=== PATIENT | female | born 1945 | race Caucasian/White ===

== ENCOUNTER 2017-02-13 12:39 | Inpatient (IN) ==
[2017-02-13] MEDS ORDERED: KETOROLAC 30 MG/1 ML VIAL IV STA (13:01)
[2017-02-13] MEDS ORDERED: ONDANSETRON 4 MG/2 ML VIAL IV STA (13:01)
[2017-02-13] MEDS ORDERED: methylPREDNISolone SOD SUC 125 MG/2 ML VIAL IV STA (13:01)
[2017-02-13] MEDS ORDERED: MECLIZINE 25 MG TABLET PO STA (13:01)
[2017-02-13] MEDS ORDERED: FUROSEMIDE 40 MG/4 ML VIAL IV STA (13:05)
--- NOTE | 2017-02-13 13:09 | Emergency Department Note ---
Arrival - Arrival Chief Complaint: Weakness Stated Complaint: real weak ED Nursing Triage Note: Pt c/o weakness x 3 wks states she had virus that has improved but has continued weakness, dizziness, ?syncope/fall last night, and decreased appetite. Mode of Arrival: Wheelchair Limitations: No Limitations Source: Patient Time Seen by Provider: 02/13/17 13:01 - History of Present Illness HPI Narrative: This 72-year-old white female presents with a 3 week history of fatigue complicated by perceived progressive weakness, dizziness, near-syncope, and fall. The patient currently does complain of nausea and persistent dizziness as well as aches and pains as well as left orbital pain after a fall last night in which she bounced her head off the floor. She denies any loss of consciousness associated with this. As concerns her course for the last 3 weeks , she states it started with nausea and vomiting without chills, fever, respiratory symptoms, or sinus symptoms. She states she feels she just never got over it and in fact has become progressively less active, a fact her daughter verifies. At no time did the patient have any complaints of ear problems, visual changes, headache, focal deficits, shortness of breath, palpitations, or chest pain. She currently is quite talkative and in no obvious acute medical distress. Onset (ago): week(s) (Patient presents 3 weeks post onset of symptoms) Consistency: constant Severity: moderate Allergies/Adverse Reactions: Allergies Allergy/AdvReac Type Severity Reaction Status Date / Time No Known Allergies Allergy Verified 02/13/17 12:44 Home Medications: Home Medications Medication Instructions Recorded Confirmed Type No Known Home Medications [No 02/13/17 02/13/17 History Known Home Medications] Review of System - Review of System 12 point system: reviewed and no additional remarkable complaints except as stated - Review of System Constitutional: Present: as per HPI Head/Ears/Nose/Throat: Present: see HPI Respiratory: Present: as per HPI Cardiovascular: Present: as per HPI Gastrointestinal: Present: as per HPI Neurological: Present: as per HPI Medical,Surgical,& Family Hx - Social History Smoking Status: Never smoker Exam Physical Examination: GENERAL: Well developed, well nourished elderly white female in no acute distress. HEENT: Normocephalic. Ecchymosis and swelling of the superior left orbit. Moist mucous membranes. EOMI. PERRLA. No nystagmus ENT NML NECK: Supple. No adenopathy. CARDIAC: Regular. No murmurs. Heart rate 105 CHEST: Clear to auscultation. No respiratory distress. O2 sat 99% ABDOMEN: Soft. Nontender. Active bowel sounds. EXTREMITIES: No trauma. Normal ROM. No pedal edema. SKIN: No diaphoresis. No rash. NEURO: Alert. Oriented 3. Motor, sensory, vibratory intact. No focal deficits. Vital Signs: Vital Signs Temperature 98.3 F 02/13/17 12:40 Pulse Rate 92 H 02/13/17 14:45 Respiratory Rate 16 02/13/17 14:45 Blood Pressure 101/70 02/13/17 14:45 O2 Sat by Pulse Oximetry 98 02/13/17 14:45 Course - Reevaluation(s) Reevaluation #1: Discussed with patient and family the need for further evaluation and treatment given her abnormalities of laboratory. - Consultations Consultation #1: Discussed with the hospitalist service will admit for further evaluation treatment Results - Labs CBC & BMP: 02/13/17 13:21 02/13/17 13:21 Labs: I reviewed the lab and noted the elevated white blood cell count, and significant jump in troponin despite normal total CK. Likewise noted was evidence of a urinary tract infection. - Impressions EKG: Sinus rhythm at 93 with normal NM interval and QRS duration. Evidence of old inferior infarct and ST changes consistent with probable persistent ischemia. Poor R-wave progression anteriorly. No acute injury pattern noted. - Diagnostic Findings Procedure: Chest x-ray: image reviewed by me, report reviewed by me (No acute disease.), CT: image reviewed by me, report reviewed by me (Head: No acute injury but diffuse atherosclerotic disease of intracranial vessels, facial CT: No acute fractures but evidence of sinus disease) Disposition Clinical Impression: Abnormal cardiac enzyme, Cystitis Case discussed with: patient, patient's family Disposition: Still a Patient Condition: Stable Time of Disposition: 16:01
[2017-02-13] MEDS ORDERED: KETOROLAC 30 MG/1 ML VIAL ONE (13:15)
[2017-02-13] MEDS ORDERED: MECLIZINE 25 MG TABLET ONE (13:15)
[2017-02-13] MEDS ORDERED: methylPREDNISolone SOD SUC 125 MG/2 ML VIAL ONE (13:15)
[2017-02-13] MEDS ORDERED: FUROSEMIDE 40 MG/4 ML VIAL ONE (13:16)
[2017-02-13] MEDS ORDERED: ONDANSETRON 4 MG/2 ML VIAL ONE (13:16)
--- NOTE | 2017-02-13 13:35 | CT Report ---
CT of the head without contrast. Indication: Dizziness with fall and head injury and facial pain. No prior studies. There is calcific plaque present within the intracranial internal carotid arteries. There is calcification within the vertebral arteries. There is generalized prominence of the ventricles and sulci consistent with atrophy of aging. There is mild bilateral basal ganglial calcification. There is no mass effect, midline shift, or area of hemorrhage. No cortical infarcts are seen at this time. The calvarium is intact. The included paranasal sinuses and the mastoid air cells are clear. Impression: No evidence of acute intracranial injury. The CT exam was performed using one or more of the following dose reduction techniques: Automated exposure control, adjustment of the mA and/or kV according to patient size, or use of iterative reconstruction technique. PROCEDURE INTERPRETED AT [facility] DEPARTMENT OF RADIOLOGY Final Report Signed by: Dr. Johanna Gil
--- NOTE | 2017-02-13 13:40 | CT Report ---
CT of the facial bones without contrast. Axial images were obtained with sagittal and coronal reconstructions. Indication: Dizziness, fall, injury to the face. There is partial opacification of an air cell of the left frontal sinuses. There is scattered mucous debris and mucosal thickening within the ethmoid sinuses. There is mild mucosal thickening within both maxillary sinuses. No air-fluid levels are seen. There is a wisdom tooth present on the upper left. No acute fractures are identified. 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 The mastoid air cells are clear. There is no temporomandibular joint dislocation. Impression: No evidence of acute facial fracture. Scattered paranasal sinus disease. The CT exam was performed using one or more of the following dose reduction techniques: Automated exposure control, adjustment of the mA and/or kV according to patient size, or use of iterative reconstruction technique. PROCEDURE INTERPRETED AT [facility] DEPARTMENT OF RADIOLOGY Final Report Signed by: Dr. Johanna Gil
--- NOTE | 2017-02-13 13:41 | XRay Report ---
2 view chest. Indication: Fall, injury, and chest pain. The heart and mediastinal contours are unremarkable. The pulmonary vasculature is normal. Slight interstitial prominence, likely chronic. No consolidation, pneumothorax, or pleural effusion. Demineralization, with exaggerated kyphosis of the thoracic spine and degenerative changes. Impression: No acute abnormality. PROCEDURE INTERPRETED AT [facility] DEPARTMENT OF RADIOLOGY Final Report Signed by: Dr. Johanna Gil
[2017-02-13 13:53] LABS: Basophils % 0.1 % (0.0-0.8); Hematocrit 32.2 VOL% (35.7-47.0); Hemoglobin 9.4 GM/DL (12.0-16.0); Immature Granulocytes % 0.6 %; Lymphocytes # 1.4 10*3/uL (1.4-4.0); Lymphocytes % 8.1 % (21.3-54.2); Mean Corpuscular HGB Conc 29.2 GM/DL (32-36); Mean Corpuscular Hemoglobin 22 PG (27-34); Mean Corpuscular Volume 76.1 FL (87-102); Mean Platelet Volume 10.1 FL (9.6-12.0); Monocytes # 1.1 10*3/uL (0.11-0.8); Neutrophils # 14.8 10*3/uL (1.4-7.4); Neutrophils % 85.2 % (38.7-73.9); Platelet Count 159 T/CUMM (130-400); Red Blood Count 4.23 MC/CUMM (3.8-5.5); Red Cell Distribution Width 20.6 % (9.3-17.3); White Blood Count 17.4 T/CUMM (4-12)
--- NOTE | 2017-02-13 13:59 | EKG Report ---
Stationary ECG Study [facility] ER Test Date: 02/13/2017 1:52:28 PM Pat Name: TYRONE LOZANO Department: Room: Gender: F [employer]: : 1945 Requested by: Vijay Whitfield Order Number: [id number] Reading MD: BRIAN RAY Intervals [place] Rate: 93 P: 64 DC: 148 QRS: 19 QRSD: 98 T: -17 QT: 377 QTc: 428 Interpretive Statements SINUS RHYTHM MODERATE T-WAVE ABNORMALITY, CONSIDER LATERAL ISCHEMIA Electronically Signed On 02-13-17 19:08:51 CDT by BRIAN RAY [email or web address]
[2017-02-13 14:09] LABS: INR 1.2; PT Patient Result 12.3 SECS
[2017-02-13 14:20] LABS: Albumin 2.2 G/DL (3.4-5.0); Bilirubin,Total 0.4 MG/DL (0.2-1.0); CKMB % 11.8 %; Calcium 7.5 MG/DL (8.5-10.1); Free T4 (Free Thyroxine) 1.25 NG/DL (0.76-1.46); Osmolality,Calculated 292.1 MOS/KG (273-304); Potassium 3.7 MMOL/L (3.5-5.1); Thyroid Stimulating Hormone 1.3 uIU/ml (0.358-3.74); Troponin I Only 0.809 NG/ML (0.00-0.045)
[2017-02-13 15:36] LABS: Apearance,Urine Slightly Hazy (Clear); Bacteria,Urine Many /HPF (Few); Bilirubin,Urine Negative (Negative); Blood, Urine Small mg/dL (Negative); Glucose,Urine (UA) Negative (Negative); Hyaline Casts,Urine 18 /LPF (0-3); Ketones,Urine Negative (Negative); Mucus,Urine Few /LPF (Occasional); Nitrite,Urine Positive (Negative); Protein,Urine Negative; RBC,Urine 1 /HPF (0-4); Squamous Epithelial Cell,Urine Occasional /HPF (0-10); Urine Color Yellow (Yellow); Urine Specific Gravity 1.016 (1.001-1.035); Urine Urobilinogen < 2.0 EU/DL (0.2-1.0); WBC,Urine 3 /HPF (0-6)
[2017-02-13 15:42] LABS: Barbiturates Screen,Urine Negative (Negative); Benzodiazepines Screen,Urine Negative (Negative); Cannabinoid Screen,Urine Negative (Negative); Opiate Screen,Urine Negative (Negative); Phencyclidine Screen,Urine Negative (Negative)
[2017-02-13] MEDS ORDERED: LEVOFLOXACIN INJ 750 MG in PREMIX 1 EACH IV STA (15:45)
[2017-02-13] MEDS ORDERED: NITROGLYCERIN 2% OINT 1 INCH/GM PACK TOP STA (15:45)
[2017-02-13] MEDS ORDERED: ASPIRIN 325 MG TABLET PO STA (15:45)
[2017-02-13] MEDS ORDERED: LEVOFLOXACIN INJ 150 ML IV ONE (16:05)
[2017-02-13] MEDS ORDERED: ASPIRIN 325 MG TABLET ONE (16:05)
[2017-02-13] MEDS ORDERED: NITROGLYCERIN 2% OINT 1 INCH/GM PACK TOP ONE (16:05)
[2017-02-13] MEDS ORDERED: ONDANSETRON 4 MG/2 ML VIAL IV PRN (18:31)
--- NOTE | 2017-02-13 18:35 | Hospitalist History & Physical ---
Assessment and Plan (1) Microcytic anemia Status: Acute Assessment and plan: The patient is admitted to the hospital with a weight loss associated with microcytic anemia, swelling of bilateral lower extremities, nausea. The symptoms appear related to the GI system so we will obtain consultation with Dr. Valentin. We will check CT scan of abdomen and pelvis with oral and IV contrast. We will check a CA 125 and CA-19-9 as well as CEA. We will check EUGENIO and sed rate. Differential diagnosis is rather large and includes infectious, inflammatory, and neoplastic considerations. Current Visit: Yes (2) Weakness generalized Status: Acute Current Visit: Yes (3) Nausea Status: Acute Current Visit: Yes (4) Weight loss, unintentional Status: Acute Current Visit: Yes History of Present Illness Chief complaint: Weakness and weight loss History of present illness: Ms. Castaneda is a 72 year old female with minimal previous medical evaluation. The patient states she was in her usual state of health until about 1 month ago when she had a spell of epidemic nausea vomiting and diarrhea. This symptom was severe for about a week and then became moderate improving and intermittent. The patient had some weight loss. The patient did not notice any bleeding. The patient had mild shortness of breath and since that time has had increasing symptom of weakness. The patient had orthostatic symptoms on the date of admission to the hospital and fell injuring her face with an unguarded fall. The patient denies fever. The patient denies angina. The patient's symptom was moderate, intermittent, and worsening. The patient is now admitted to the hospital for further evaluation of weakness, dizziness, weight loss. The patient denies previous mammogram or Pap smear. The patient states that she has had some brown stools although previously they were watery during the period of symptomatic diarrhea. Home Medications Medication Instructions Recorded Confirmed Type No Known Home Medications [No 02/13/17 02/13/17 History Known Home Medications] Allergies Allergy/AdvReac Type Severity Reaction Status Date / Time No Known Allergies Allergy Verified 02/13/17 12:44 Medical,Surgical,& Family Hx - Medical History Cardio: History of: PVD (Swelling of right greater than left leg) - Family History Family History: Reports;: Family Cancer (sister mother), Family Hypertension Denies;: Family Diabetes, Family Heart Disease, Family Hematology, Family Stroke - Social History Smoking Status: Never smoker Frequency of Alcohol Use: None Type of Drug Use: None Marital Status: Lives With:: Spouse Functional capacity: independent ambulation 12 point system: reviewed and no additional remarkable complaints except as stated Exam - Constitutional Vitals: Period Temp Pulse Resp BP Sys/Altamirano Pulse Ox Last 24 Hr 72-110 16-16 91-115/60-86 93-100 Exam: Constitutional System: Mild distress. Mild tremulousness. The patient had some anxiety with pressured speech Head: Normocephalic, atraumatic. Ears, Nose and Throat System: No evidence of Otitis or Mastoiditis. No epistaxis or discharge Eyes System: Pupils equal, round, and reactive. Extraocular muscles intact. Neck: Supple, without adenopathy, No jugular venous distention. No thyromegaly , neck mass, or prior surgery apparent. Respiratory System: Chest clear to auscultation. Cardiovascular System: Heart with regular rate and rhythm. No murmur. GI System: Abdomen soft, nontender. Normo active bowel sounds present. Musculoskeletal System: limbs with 2+ pedal edema which is brawny and appears chronic. Full distal pulses. Neurological System: No discernable sensory deficit. No aphasia Psychiatric System: Conversation is rational Results - Labs CBC & BMP: 02/13/17 13:21 02/13/17 13:21 Lab Results: I have reviewed the past 24 hour labs Labs: Thyroid function testing within normal limits. The patient has only a few white blood cells per high-powered field on urinalysis. - Diagnostic Findings Procedure: Chest x-ray: image reviewed by me (Normal size heart without infiltrate in the chest)
[2017-02-13] MEDS ORDERED: ENOXAPARIN 40 MG/0.4 ML SYRINGE SUBCUT SCH (19:00)
--- NOTE | 2017-02-13 19:34 | Ultrasound Report ---
Bilateral lower extremity venous Doppler. Grayscale scale, color-flow, and spectral analysis performed and interpreted. No previous. There is normal color flow, augmentation, and compressibility of the right common femoral vein. Within the right superficial femoral vein, there is thin, nonocclusive thrombus noted. The right popliteal vein demonstrates normal compressibility, color flow, and augmentation. There is thrombus, probably occlusive, within the greater saphenous vein, 5 cm from the origin of the common femoral vein. There is additional occlusive thrombus seen in a superficial femoral vein of the upper thigh. The left common femoral vein demonstrates normal compressibility, color flow, and augmentation. There is nonocclusive thrombus seen within the superficial femoral vein and the popliteal vein on the left. Impression: Nonocclusive thrombus in both deep venous systems. Occlusive thrombus in the greater saphenous vein and a superficial vein within the right thigh. Critical test findings were discussed with the nursing station on telemetry. PROCEDURE INTERPRETED AT [facility] DEPARTMENT OF RADIOLOGY Final Report Signed by: Dr. Johanna Gil
[2017-02-13 19:53] LABS: Vitamin B12 825 PG/ML (211-911)
[2017-02-13 20:04] LABS: Basophils % 0.1 % (0.0-0.8); Hematocrit 28.4 VOL% (35.7-47.0); Hemoglobin 8.7 GM/DL (12.0-16.0); Immature Granulocytes % 0.6 %; Immature Granulocytes Absolute 0.07 #; Lymphocytes # 0.5 10*3/uL (1.4-4.0); Lymphocytes % 4.5 % (21.3-54.2); Mean Corpuscular HGB Conc 30.6 GM/DL (32-36); Mean Corpuscular Hemoglobin 23 PG (27-34); Mean Corpuscular Volume 74.2 FL (87-102); Monocytes # 0.2 10*3/uL (0.11-0.8); Monocytes % 1.6 % (1.7-12.7); Neutrophils # 11.3 10*3/uL (1.4-7.4); Neutrophils % 93.2 % (38.7-73.9); Platelet Count 143 T/CUMM (130-400); Red Blood Count 3.83 MC/CUMM (3.8-5.5); Red Cell Distribution Width 20.2 % (9.3-17.3); White Blood Count 12.1 T/CUMM (4-12)
[2017-02-13 20:23] LABS: Lymphocytes 1 % (20-55); Segmented Neutrophils 99 % (50-85); Total Cells Counted 100
[2017-02-13 20:24] LABS: Acanthocytes Few; Ovalocytes Few; Polychromasia Few
[2017-02-13 20:25] LABS: Platelet Estimate Adequate
[2017-02-13 21:11] LABS: Sedimentation Rate-Westergren 6 MM/HR (0-30)
[2017-02-13] MEDS: ENOXAPARIN 80 MG/0.8 ML SYRINGE SUBCUT SCH (21:22)
[2017-02-13] MEDS: SODIUM CHLORIDE 0.9% 1,000 ML IV SCH (21:29)
[2017-02-14 06:01] LABS: Albumin 1.9 G/DL (3.4-5.0); Bilirubin,Total 1.2 MG/DL (0.2-1.0); Calcium 7.7 MG/DL (8.5-10.1); Magnesium 2.1 MG/DL (1.8-2.4); Osmolality,Calculated 293.1 MOS/KG (273-304); Potassium 4.1 MMOL/L (3.5-5.1); Total Protein 4.3 G/DL (6.4-8.3)
[2017-02-14 06:02] LABS: Troponin I Only 0.471 NG/ML (0.00-0.045)
--- NOTE | 2017-02-14 08:28 | CT Report ---
CT of the abdomen and pelvis with intravenous contrast. No oral contrast was administered. 100 cc Omni 350. Indication: Weight loss and nausea. Axial images were obtained during the venous and delayed phases, with sagittal and coronal 2-D reconstructions of the venous phase. The heart size is normal. There is no pericardial or pleural effusion. There is bilateral pulmonary thromboembolism in the secondary and tertiary branches of the pulmonary artery system. There is a small hiatal hernia. The gastric contour is normal. The loops of small intestine are mildly dilated, measuring up to 3.5 cm in maximum diameter. The colon is dilated proximally, with fluid present. At the mid transverse colon, there is circumferential wall thickening which is enhancing and measures up to 2 cm in maximum thickness. It extends over a length of approximately 7 cm. There is stranding in the fat surrounding this mass. Within the sigmoid colon, there is an intraluminal lobular polypoid enhancing mass, measuring 3.6 x 2.4 cm. Gas and fecal material are seen within the rectal vault. The appendix is not discretely seen. The pelvic organs present a normal appearance. There is no inguinal or iliac chain lymphadenopathy. There is no retroperitoneal or mesenteric lymphadenopathy. There is no free air or free fluid within the peritoneal cavity. The liver is normal in size. There is mild fatty infiltration of the liver. There is a tiny hypodensity within the superior aspect of the spleen, nonspecific. There is no adrenal enlargement. There is partial fatty replacement of the pancreas. The kidneys are normal in size. There is mild cortical thinning on the left. There is a 15 mm cyst on the right kidney. No hydronephrosis. There is scattered plaque present within a normal caliber abdominal aorta. Thrombus is seen within the IVC, below the level of the renal veins, and extending into the right iliac vein. No thrombus is seen in the right common femoral vein. There is scoliosis of the spinal column, with degenerative changes and exaggerated lordosis. Left greater than right sacroiliitis. Impression: 1. Bilateral pulmonary thromboembolism. Thrombus is seen within the IVC and right iliac vein. 2. Within the colon, there are 2 masses suspicious for malignancy. One is a circumferential mass at the level of the mid transverse and one is a polypoid mass at the level of the sigmoid. Colonoscopy recommended. 3. Mild partial bowel obstruction. 4. Mild fatty infiltration of the liver. 5. Small hiatal hernia. These findings were discussed with Dr. Hunter at the time of dictation. The CT exam was performed using one or more of the following dose reduction techniques: Automated exposure control, adjustment of the mA and/or kV according to patient size, or use of iterative reconstruction technique. PROCEDURE INTERPRETED AT [facility] DEPARTMENT OF RADIOLOGY Final Report Signed by: Dr. Johanna Gil
[2017-02-14] MEDS ORDERED: ASPIRIN 325 MG TABLET PO SCH (09:00)
[2017-02-14] MEDS: PANTOPRAZOLE 40 MG TABLET PO SCH (09:17)
--- NOTE | 2017-02-14 10:17 | Gastrointestinal Consult Note ---
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 Hopefully she will be able to get a bowel prep they gets her cleaned out enough to be able to undergo full evaluation and potentially surgery to follow. Patient has abnormal weight loss and anemia with guaiac positive stools all supporting the potential cancer. She has a strong family history of colon cancer in her mother and sister bringing up the possibility of Chavis syndrome and so when the pathology from the cancer resection goes off to the lab we need to check for microsatellite instability/genetic markers for Chavis syndrome. The patient also has a large polyp versus second cancer in the sigmoid colon and we will see if this can be resected and removed en kathrine. In my opinion, if this is Chavis syndrome, more colon removed better. Chavis syndrome requires surveillance of affected family members once every 2 years and has a predisposition to proximal colon cancer. Current Visit: Yes (2) Anemia associated with acute blood loss Status: Suspected Assessment and plan: Patient's hematocrit is dropped from 32% down to 28%, and will likely stay at this level due to her chronic blood loss. We will consider transfusion if she drops below 24%. Current Visit: Yes (3) Abnormal CT of the abdomen Status: Acute Assessment and plan: As mentioned above the patient has 2 lesions that are likely potential cancers although the transverse lesion is most certainly the primary there may be a secondary sigmoid cancer versus large polyp as well. The patient has the appearance of IVC clot extending down to the right iliac artery with thromboemboli noted in the lungs all suspicious for hypercoagulable state perhaps brought about by the cancer. Medicine is working this up now. 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 Current Visit: Yes (4) Weight loss, unintentional Status: Acute Assessment and plan: Patient states that she has lost 20 pounds over the last 2 months. This is also consistent with colon cancer and decreased p.o. intake. There is a element of ileus on the CT scan as well with some slight dilation of the small bowel. Hopefully she will be able to get prepped appropriately. Antinauseants have been written. Current Visit: Yes History of Present Illness Chief complaint: Colonic masses by CT scan, slight change in bowel habits, anemia, wt. loss History of present illness: Ms. Castaneda is a 72 year old female who presents with 1 month of nausea/ vomiting and minimal change in her bowel habits with 2 looser bowel movements per day than usual. She actually goes to the bathroom twice daily as a rule, these are just a bit less firm than usual. She been having some orthostatic symptoms on the day of admission and had fallen with the emergency room noting that she had a anemia. Through her hospitalization, her hematocrit is dropped from 32.2 percent down to 28.4 percent with hydration, she has not seen any rainer rectal bleeding but has been noted on physical exam to have guaiac gerard stool. She is a strong family history of colon cancer both in her mother and her sister who is age 65 (6 years the patient's Matt), the sister had to have a colostomy bag for her colon cancer. This puts the patient at very high risk for Chavis syndrome. She has had a CT scan done today which demonstrates a 3.6 x 2.4 cm intraluminal lobular polypoid mass consistent with a large polyp versus cancer. In addition there is a mid transverse colon napkin ring deformity extending 7 cm in length and thickening the colon wall to 2 cm in maximal dimension consistent with a colon cancer. There is fat stranding around this area but no inguinal or iliac chain lymphadenopathy or retroperitoneal/mesenteric lymphadenopathy no free air or free fluid within the peritoneal cavity. There are bilateral pulmonary thromboemboli and thrombus is seen within the IVC below the level of the renal veins extending down to the right iliac vein (? Trousseau's syndrome variant?). The patient does have some reflux symptoms but these are minimal she does not have any dysphagia. She does not typically take proton pump inhibitors. She does not have any classic abdominal pain symptoms with her current complaints. Family confirms the patient has had about a 20 pound unintentional weight loss since December 2016. Home Medications Medication Instructions Recorded Confirmed Type No Known Home Medications [No 02/13/17 02/13/17 History Known Home Medications] Allergies Allergy/AdvReac Type Severity Reaction Status Date / Time No Known Allergies Allergy Verified 02/13/17 12:44 Medical,Surgical,& Family Hx - Medical History Cardio: History of: PVD (Swelling of right greater than left leg) - Family History Family History: Reports;: Family Cancer (sister mother), Family Hypertension Denies;: Family Diabetes, Family Heart Disease, Family Hematology, Family Stroke - Social History Smoking Status: Never smoker Frequency of Alcohol Use: None Type of Drug Use: None Review of systems: Constitutional: Denies fever, chills, nausea, and vomiting Eyes: Denies dry eyes, and scleral icterus HENT: Denies headaches Cardiovascular: Denies acute chest pain and claudication Respiratory: Denies shortness of breath, wheezing, and difficulty breathing, denies cough Gastrointestinal: As noted in the HPI Genitourinary: Denies dysuria and hematuria Neurologic: Denies vision loss, and loss of sensation Musculoskeletal: Patient does have some joint swelling, joint stiffness, and muscular weakness Psychiatric: Denies depression and debi symptoms Heme-Lymph: Denies easy bruising, lymph node enlargement or tenderness, night sweats, excessive bleeding Allergies-immunologic: Denies pruritus and rhinorrhea Exam - Constitutional Vitals: Period Temp Pulse Resp BP Sys/Altamirano Pulse Ox Last 24 Hr 96.8 F-98.3 F 72-110 16-21 91-120/58-86 92-100 Exam: Constitutional: Well-developed, well-nourished, alert, and in no acute distress Head and face: Head: Normocephalic atraumatic Eyes: Conjunctiva without injection, no gross scleral icterus, pupils equal and round bilaterally--early cataracts are developing bilaterally Ears: Intact to conversation in both ears Nose: External appearance is normal, nares patent Mouth: Oral mucous membranes moist without erythema, dentition noted to be without erosion but a few teeth are fractured off at the gumline with caries. Neck: Normal appearance, no masses or tenderness, trachea midline Thyroid: Gland midline and appropriate size for age Respiratory: Normal respiratory effort, clear to auscultation without wheezes, rhonchi or rales Cardiovascular: Regular rate and rhythm, normal S1, S2, the exam is without rubs, murmurs or gallops. Gastrointestinal: Nontender to palpation, normal active bowel sounds, tone normal without rigidity or guarding, no masses present, no hepatomegaly, no spleen tip felt. No rectal exam obtained. Lymphatic: Neck without adenopathy, axilla without lymphadenopathy present Musculoskeletal: Right and left lower extremities with evidence of trace edema Skin and subcutaneous tissue: No rashes or ulcerations noted, normal skin turgor, digits and nails without clubbing/cyanosis/deformities. Neurologic: The patient is grossly oriented to person place and time, cranial nerves show tongue movements are normal with normal tongue extrusion midline, light touch sensation is intact. Psychiatric: No hallucinations or delusions are present, does not appear depressed Results - Labs CBC & BMP: 02/13/17 19:44 02/14/17 04:57
--- NOTE | 2017-02-14 10:30 | Hospitalist Progress Note ---
Assessment and Plan (1) Microcytic anemia Status: Acute Assessment and plan: The patient is admitted to the hospital with a weight loss associated with microcytic anemia, swelling of bilateral lower extremities, nausea. The patient appears to have colon cancer without metastases to the liver so far. The patient will have colonoscopy on Wednesday morning. CA-19-9 is within normal limits. CA 125 and CEA test are pending. We are going to discontinue Lovenox and continue aspirin for now. After colonoscopy the patient will start on anticoagulation for the deep vein thrombosis. Current Visit: Yes (2) Weakness generalized Status: Acute Current Visit: Yes (3) Nausea Status: Acute Current Visit: Yes (4) Weight loss, unintentional Status: Acute Current Visit: Yes Hospitalist: Subjective Interval history: 72 yo lady who arrived with microcytic anemia and weakness. The patient has a circumferential lesion seen in the transverse colon as well as a polypoid lesion in the sigmoid colon seen on CT scan of abdomen and pelvis. There is no mention of liver metastases. The patient does have thrombus in the IVC and bilateral lower extremities which is probably a paraneoplastic process. The patient will have colonoscopy on Wednesday to obtain definitive pathology diagnosis. I had an extended conversation with Dr. Valentin to coordinate care, with the patient to give her the diagnosis of colon cancer, and with the patient 's daughter in the room. Conversations were 25 minutes. Exam - Constitutional Vitals: Period Temp Pulse Resp BP Sys/Altamirano Pulse Ox Last 24 Hr 96.8 F-98.3 F 72-110 16-21 91-120/58-86 92-100 Exam: Constitutional System: Mild distress. Mild tremulousness. The patient had some anxiety with pressured speech Head: Normocephalic, atraumatic. Ears, Nose and Throat System: No evidence of Otitis or Mastoiditis. No epistaxis or discharge Eyes System: Pupils equal, round, and reactive. Extraocular muscles intact. Neck: Supple, without adenopathy, No jugular venous distention. No thyromegaly , neck mass, or prior surgery apparent. Respiratory System: Chest clear to auscultation. Cardiovascular System: Heart with regular rate and rhythm. No murmur. GI System: Abdomen soft, nontender. Normo active bowel sounds present. Musculoskeletal System: limbs with 2+ pedal edema which is brawny and appears chronic. Full distal pulses. Neurological System: No discernable sensory deficit. No aphasia Psychiatric System: Conversation is rational Results - Labs CBC & BMP: 02/13/17 19:44 02/14/17 04:57 Lab Results: I have reviewed the past 24 hour labs
[2017-02-14] MEDS: ENOXAPARIN 80 MG/0.8 ML SYRINGE SUBCUT SCH (10:44)
[2017-02-14] MEDS ORDERED: PROMETHAZINE INJ 25 MG in SODIUM CHLORIDE 0.9% 50 ML IV PRN (10:56)
[2017-02-14] MEDS: BISACODYL 5 MG TABLET PO SCH ×2 (10:59→18:04)
[2017-02-14] MEDS ORDERED: POLYETHYLENE GLYCOL POWDER 255 GM BOTTLE PO ONE (16:00)
[2017-02-14] MEDS: SODIUM CHLORIDE 0.9% 1,000 ML IV SCH (16:55)
--- NOTE | 2017-02-14 17:11 | ECHO Report ---
Carin Castaneda Exam Date: 02/14/2017 10:29 Referring Physician: Technologist: Angela Cortes RDCS Age: 72 Ht (in): 68 Wt (lb): 150 Gender: F Exam Location: [facility] Echo Indications: Microcytic anemia, Weakness, Dizziness and giddiness, Chronic fatigue, unspecified, Nausea, Weight loss, Fall, Elevated troponin, Edema, unspecified BP: 102 / 61 HR: 92 Rhythm: Sinus Technical Quality: Good IMPRESSIONS Normal left ventricular cavity size. Normal left ventricular wall thickness. Left ventricular ejection fraction is estimated at 65 %. Moderate increased right ventricular size. Moderately increased right atrial size. The left atrium is mildly enlarged. Mild-moderate mitral valve regurgitation. Trace to mild aortic valve regurgitation. Mild tricuspid valve regurgitation. tricuspid regurgitation velocities suggest a PAP of 54 mmHg. [id number] pulmonary valve regurgitation. MEASUREMENTS (Male / Female) Normal Values 2D ECHO LV Diastolic Diameter PLAX 4.0 cm 4.2 - 5.9 / 3.9 - 5.3 cm LV Systolic Diameter PLAX 2.4 cm LV Fractional Shortening PLAX 40.6 % IVS Diastolic Thickness 0.9 cm 0.6 - 1.0 / 0.6 - 0.9 cm LVPW Diastolic Thickness 0.9 cm 0.6 - 1.0 / 0.6 - 0.9 cm RV Internal Dim ED PLAX 3.8 cm Aortic Root Diameter 2.9 cm LA Systolic Diameter LX 3.9 cm 3.0 - 4.0 / 2.7 - 3.8 cm DOPPLER TR Peak Velocity 332.0 cm/s TR Peak Gradient 44.1 mmHg FINDINGS Left Ventricle Normal left ventricular cavity size. Normal left ventricular wall thickness. Left ventricular ejection fraction is estimated at 65 %.Findings suggestive of left ventricular diastolic dysfunction. Right Ventricle moderate increased right ventricular size.prominent moderator band in right ventricle (normal variant). Right Atrium Moderately increased right atrial size. Left Atrium The left atrium is mildly enlarged. Mitral Valve Morphologically normal mitral valve. Mild mitral annular calcification. Mild-moderate mitral valve regurgitation. Aortic Valve Aortic valve sclerosis without stenosis. Trace to mild aortic valve regurgitation. Tricuspid Valve Morphologically normal tricuspid valve. Mild tricuspid valve regurgitationtricuspid regurgitation velocities suggest a PAP of 54 mmHg. . Pulmonic Valve Morphologically normal pulmonic valve. Ycej-hg-viqyvahb pulmonary valve regurgitation. Pericardium Normal pericardium without effusion. Aorta Normal ascending aorta dimension. Jaxson Woods MD (Electronically Signed) Final Date: 14 February 2017 17:10
[2017-02-14] MEDS ORDERED: MAGNESIUM CITRATE 300 ML BOTTLE PO ONE (21:00)
[2017-02-15] MEDS: BISACODYL 5 MG TABLET PO SCH (01:17)
[2017-02-15] MEDS: SODIUM CHLORIDE 0.9% 1,000 ML IV SCH ×2 (09:50→17:27)
[2017-02-15] MEDS: PANTOPRAZOLE 40 MG TABLET PO SCH (09:51)
--- NOTE | 2017-02-15 13:35 | Hospitalist Progress Note ---
Assessment and Plan (1) Microcytic anemia Status: Acute Current Visit: Yes (2) Weakness generalized Status: Acute Current Visit: Yes (3) Weight loss, unintentional Status: Acute Current Visit: Yes (4) Abnormal CT of the abdomen Status: Acute Assessment and plan: Probable colon cancer. Colonoscopy today for tissue diagnosis Current Visit: Yes Hospitalist: Subjective Interval history: Patient up all night preparing for colonoscopy. Denies nausea or vomiting. Colonoscopy today Exam - Constitutional Vitals: Period Temp Pulse Resp BP Sys/Altamirano Pulse Ox Last 24 Hr 96.4 F-97.9 F 68-96 16-20 101-144/60-70 92-96 General appearance: normal weight - Head Head exam: Present: normocephalic, atraumatic - Eye Eye exam: Present: EOMI Pupils: Present: SOPHIA - ENT ENT exam: Present: normal exam - Neck Neck exam: Present: normal inspection. Absent: tenderness - Respiratory Respiratory exam: Present: clear to auscultation bilaterally. Absent: rhonchi, wheezes - Cardiovascular Cardiovascular exam: Present: regular rate and rhythm - GI/Abdominal GI/Abdominal exam: Present: normal bowel sounds, soft. Absent: tenderness, rebound - Extremities Exam Extremities exam: Present: normal inspection - Back Exam Back exam: Present: normal inspection - Neurological Exam Neurological exam: Present: alert - Psychiatric Psychiatric exam: Present: normal affect, normal mood - Skin Skin exam: Present: warm, intact Results - Labs CBC & BMP: 02/13/17 19:44 02/14/17 04:57
[2017-02-15] MEDS ORDERED: LIDOCAINE 2% 5 ML VIAL ONE (13:44)
[2017-02-15] MEDS ORDERED: PROPOFOL 200 MG/20 ML VIAL IV ONE (13:44)
--- NOTE | 2017-02-15 14:25 | Anesthesia ---
Anesthesia Post OP - Post Ansesthetic Evaluation Patient seen in post op: Yes Resp: within normal limits CV: within normal limits Mental: within normal limits Temp: within normal limits [id number]-[id number]: within normal limits Nausea and Vomiting: within normal limits Pain: within normal limits
--- NOTE | 2017-02-15 14:28 | Operative Note ---
Date of procedure: 02/15/17 Pre-op diagnosis: Probable colon cancer in the mid transverse, sigmoid polyp versus mass Post-op diagnosis: other Procedure: PROCEDURE: Colonoscopy, incomplete due to cancer obstruction with cold biopsy for pathology with cold biopsy for pathology, snare polypectomy, Ngozi ink tattooing REFERRING PHYSICIAN: Curtis Hunter MD INDICATIONS: Probable colon cancer mid transverse, large sigmoid polyp The prior H&P was reviewed and interrim changes are as noted: No change from yesterday's GI consultation ENDOSCOPIST: Howard Valentin MD ENDOSCOPE: Olympus Video 100 System colonoscope COLON PREPARATION: 238 gm of PEG containing laxative and 1.9 liters of gatoraid/sports drink and dulcolax 15 mg q8 hours x 3 ASA CLASS: 3 EXAM: CV: regular rate and rhythm Respiratory: Clear without wheezes Abdominal: active bowel sounds Rectal: Good tone, no fissures or fistulas MEDICATION: Per nursing anesthesia protocol, see their notes PROCEDURE: After discussion of the potential risks and benefits of colonoscopy, the informed consent was obtained, from patient or health care surrogate. The patient was then placed in the left lateral decubitus position where sedation was achieved as noted above. Rectal examination was followed by insertion of the colonoscope. The colonoscope was passed under direct visualization to the obstructing cancer at 80 cm. Advancement was facilitated by insertion/withdrawl techniques, abdominal pressure and patient positioning. The obstructing cancer was achieved slow with that withdrawal was performed with the findings as noted below. The patient tolerated the procedure well and without complication. QUALITY OF PREP: Excellent for the portion of colon seen WITHDRAWL TIME: 25 minutes and 33 seconds BIOPSIES: Mass at 15 cm, mass at 40 cm, descending polyp, mass at 80 cm PHOTOGRAPHS: Obtained FINDINGS: The musoca appeared normal in the following regions: splenic flexure. There was complete obstruction of the colon noted at 80 cm where the circumferential napkin ring mass was noted to be on CT scan. Attempts were made to penetrate the center but these were unsuccessful. Biopsies were taken inside of the mass and from the edges of it. A descending polyp was noted approximately 1.5 cm that was removed by snare polypectomy, another mass which appeared to be either an advanced adenoma versus cancer was noted at 40 cm and several exophytic fronds were snared from this to send off for pathology. There was a final 3 cm exophytic polyp versus cancer that was not thought to be resectable endoscopically and appeared to have some central depression and one portion suspicious for cancer as well located at 15 cm just above the rectum. Distal to this at the rectosigmoid junction was another 1 cm polyp that was removed entirely by snare. Mild left-sided diverticulosis noted. Small internal hemorrhoids noted. IMPRESSION: This is a patient who has 3 separate masses which all appear to be possible cancer, all 3 of these areas were tattooed with Ngozi ink including 15 cm, 40 cm, and 80 cm to help with localization during surgery. Biopsies were taken of all 3 areas and are pending at this time, this patient also has an extremely strong history of cancer in her mother and younger sister and seems to be at very great risk for non-hereditary polyposis colorectal cancer ( HNPCC) and so the tissue from her colectomy will need to be sent for genetic testing for microsatellite instability. Given the large number of polyps removed and 3 masses, serious consideration should be given for subtotal colectomy in this patient. Incidental small internal hemorrhoids noted as well as mild left-sided diverticulosis. RECOMMENDATIONS: High fiber diet [Repeat colonosocopy in 1 year. Immediate referral to a surgeon for consideration of an extended left hemicolectomy versus subtotal colectomy, would advocate for the latter. Colonic segment/resection should be sent for genetic testing for microsatellite instability as mentioned above Citrucel 1 tablespoon in 12 oz juice BID: 1 bottle: :11 Follow up by phone for biopsy results in 1-2 weeks by phone Howard Valentin MD COPY TO: Curtsi Hunter MD Anesthesia: MAC Surgeon / Physician: Howard Valentin Estimated blood loss: minimal Specimens: other (The patient had pathology sent off from: Transverse mass at 80 cm, descending colon polyp, low descending mass at 40 cm, and rectosigmoid mass at 15 cm.) Condition: stable Disposition: post procedure unit ([facility]I. Suite) Results - Labs CBC & BMP: 02/13/17 19:44 02/14/17 04:57 Discharge Plan - Discharge Medications No Action No Known Home Medications [No Known Home Medications] - Follow Up or Referral - Forms/Instructions
--- NOTE | 2017-02-15 14:53 | Gastrointestinal Progress Note ---
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 Hopefully she will be able to get a bowel prep they gets her cleaned out enough to be able to undergo full evaluation and potentially surgery to follow. Patient has abnormal weight loss and anemia with guaiac positive stools all supporting the potential cancer. She has a strong family history of colon cancer in her mother and sister bringing up the possibility of Chavis syndrome and so when the pathology from the cancer resection goes off to the lab we need to check for microsatellite instability/genetic markers for Chavis syndrome. The patient also has a large polyp versus second cancer in the sigmoid colon and we will see if this can be resected and removed en kathrine. In my opinion, if this is Chavis syndrome, more colon removed better. Chavis syndrome requires surveillance of affected family members once every 2 years and has a predisposition to proximal colon cancer. 02/15/17--The patient underwent a colonoscopy today with the findings as follows : Colonoscopy demonstrated the following: This is a patient who has 3 separate masses which all appear to be probable cancer, all 3 of these areas were tattooed with Ngozi ink including 15 cm (rectosigmoid), 40 cm (low descending), and 80 cm (transverse) to help with localization during surgery. Biopsies were taken of all 3 areas and are pending at this time, this patient also has an extremely strong history of cancer in her mother and younger sister and seems to be at very great risk for non-hereditary polyposis colorectal cancer (HNPCC) and so the tissue from her colectomy will need to be sent for genetic testing for microsatellite instability. Given the large number of polyps seen, strong family hx of colon cancer in mother/sister and 3 masses, serious consideration should be given for subtotal colectomy in this patient versus complete colectomy with J-pouch. The patient and her family are now going to decide whether or not they want to have this done here versus a different center perhaps in [facility] or [place]. Current Visit: Yes (2) Anemia associated with acute blood loss Status: Suspected Assessment and plan: Patient's hematocrit is dropped from 32% down to 28%, and will likely stay at this level due to her chronic blood loss. We will consider transfusion if she drops below 24%. 02/15/17--we are checking the patient's hematocrit on a daily basis, this is dropped down to 28% at last check, we will keep an eye on this post colonoscopy tomorrow. It would not be surprising to see some bleeding after this patient's colonoscopy. Clear liquid diet is advocated, until it can be decided if she needs to go right to surgery. Current Visit: Yes (3) Abnormal CT of the abdomen Status: Acute Assessment and plan: As mentioned above the patient has 2 lesions that are likely potential cancers although the transverse lesion is most certainly the primary there may be a secondary sigmoid cancer versus large polyp as well. The patient has the appearance of IVC clot extending down to the right iliac artery with thromboemboli noted in the lungs all suspicious for hypercoagulable state perhaps brought about by the cancer. Medicine is working this up now. 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 02/15/17--this patient also has IVC clot and DVTs in her legs with pulmonary emboli in her lungs. She is at high risk for further pulmonary emboli, this being said she definitely needs to have her colon resected, the cancer may be participating in a hypercoagulable state. Current Visit: Yes (4) Weight loss, unintentional Status: Acute Assessment and plan: Patient states that she has lost 20 pounds over the last 2 months. This is also consistent with colon cancer and decreased p.o. intake. There is a element of ileus on the CT scan as well with some slight dilation of the small bowel. Hopefully she will be able to get prepped appropriately. Antinauseants have been written. 02/15/17--it is not surprising this patient lost weight what is surprising is that she is doing so well without abdominal pain and only mild nausea considering the amount of obstruction in her colon. I will child welfare counselor her to stay on clear liquids until surgery can be performed, here or elsewhere. Current Visit: Yes Gastroenterology - PN: Subj Interval history: The patient was able to tolerate the prep with moderate difficulty. Colonoscopy demonstrated the following: This is a patient who has 3 separate masses which all appear to be probable cancer, all 3 of these areas were tattooed with Ngozi ink including 15 cm (rectosigmoid), 40 cm (low descending), and 80 cm (transverse) to help with localization during surgery. Biopsies were taken of all 3 areas and are pending at this time, this patient also has an extremely strong history of cancer in her mother and younger sister and seems to be at very great risk for non-hereditary polyposis colorectal cancer (HNPCC) and so the tissue from her colectomy will need to be sent for genetic testing for microsatellite instability. Given the large number of polyps seen, strong family hx of colon cancer in mother/sister and 3 masses, serious consideration should be given for subtotal colectomy in this patient. Exam (Progress Note) - Constitutional Vitals: Period Temp Pulse Resp BP Sys/Altamirano Pulse Ox Last 24 Hr 96.4 F-97.9 F 68-96 16-23 90-144/55-73 92-100 General appearance: mild distress - Head Head exam: Present: normocephalic, atraumatic - Eye Eye exam: Present: EOMI Pupils: Present: SOPHIA - ENT ENT exam: Present: normal exam - Respiratory Respiratory exam: Present: clear to auscultation bilaterally - Cardiovascular Cardiovascular exam: Present: regular rate and rhythm - GI/Abdominal GI/Abdominal exam: Present: normal bowel sounds, soft. Absent: distended, guarding, tenderness, rebound - Extremities Exam Extremities exam: Absent: edema - Neurological Exam Neurological exam: Present: alert, oriented X3, CN II-XII intact. Absent: motor sensory deficit - Psychiatric Psychiatric exam: Present: normal affect, normal mood - Skin Skin exam: Present: warm Results - Labs CBC & BMP: 02/13/17 19:44 02/14/17 04:57
[2017-02-15] MEDS: CIPROFLOXACIN 500 MG TABLET PO SCH (22:18)
[2017-02-16 03:27] LABS: Basophils % 0.1 % (0.0-0.8); Eosinophils % 0.1 % (0.00-10.9); Hematocrit 23.5 VOL% (35.7-47.0); Hemoglobin 7.1 GM/DL (12.0-16.0); Immature Granulocytes % 0.5 %; Immature Granulocytes Absolute 0.04 #; Lymphocytes # 1.5 10*3/uL (1.4-4.0); Lymphocytes % 19.1 % (21.3-54.2); Mean Corpuscular HGB Conc 30.2 GM/DL (32-36); Mean Corpuscular Hemoglobin 23 PG (27-34); Mean Corpuscular Volume 74.6 FL (87-102); Mean Platelet Volume 11.3 FL (9.6-12.0); Monocytes # 0.5 10*3/uL (0.11-0.8); Neutrophils # 5.9 10*3/uL (1.4-7.4); Neutrophils % 74.2 % (38.7-73.9); Platelet Count 132 T/CUMM (130-400); Red Blood Count 3.15 MC/CUMM (3.8-5.5); Red Cell Distribution Width 21.2 % (9.3-17.3)
[2017-02-16 03:58] LABS: Calcium 7.2 MG/DL (8.5-10.1); Magnesium 2.7 MG/DL (1.8-2.4); Osmolality,Calculated 290.7 MOS/KG (273-304); Potassium 3.3 MMOL/L (3.5-5.1)
[2017-02-16] MEDS: CIPROFLOXACIN 500 MG TABLET PO SCH ×2 (08:44→22:07)
[2017-02-16] MEDS: PANTOPRAZOLE 40 MG TABLET PO SCH (08:44)
--- NOTE | 2017-02-16 09:15 | Gastrointestinal Progress Note ---
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 Hopefully she will be able to get a bowel prep they gets her cleaned out enough to be able to undergo full evaluation and potentially surgery to follow. Patient has abnormal weight loss and anemia with guaiac positive stools all supporting the potential cancer. She has a strong family history of colon cancer in her mother and sister bringing up the possibility of Chavis syndrome and so when the pathology from the cancer resection goes off to the lab we need to check for microsatellite instability/genetic markers for Chavis syndrome. The patient also has a large polyp versus second cancer in the sigmoid colon and we will see if this can be resected and removed en kathrine. In my opinion, if this is Chavis syndrome, more colon removed better. Chavis syndrome requires surveillance of affected family members once every 2 years and has a predisposition to proximal colon cancer. 02/15/17--The patient underwent a colonoscopy today with the findings as follows : Colonoscopy demonstrated the following: This is a patient who has 3 separate masses which all appear to be probable cancer, all 3 of these areas were tattooed with Ngozi ink including 15 cm (rectosigmoid), 40 cm (low descending), and 80 cm (transverse) to help with localization during surgery. Biopsies were taken of all 3 areas and are pending at this time, this patient also has an extremely strong history of cancer in her mother and younger sister and seems to be at very great risk for non-hereditary polyposis colorectal cancer (HNPCC) and so the tissue from her colectomy will need to be sent for genetic testing for microsatellite instability. Given the large number of polyps seen, strong family hx of colon cancer in mother/sister and 3 masses, serious consideration should be given for subtotal colectomy in this patient versus complete colectomy with J-pouch. The patient and her family are now going to decide whether or not they want to have this done here versus a different center perhaps in [facility] or [place]. 02/16/17--the patient's family has decided to see a surgeon at [facility] who is known to the family from the patient's sister's resection requiring colostomy. She wishes to undergo a transfer to [facility] which may or may not be possible depending on whether that particular surgeon has availability do the case. The patient has nonobstructed and potentially it might be easier to have her on a clear liquid diet until she sees the physician if this can be done expeditiously. This would allow time for the pathology to come back on the colonoscopy specimens done yesterday. Bear in mind the patient has a transverse colon segment that could not be penetrated with a colonoscope and therefore is very close to obstruction. Again, the colonoscopy demonstrated 3 areas that might all potentially be cancerous--a subtotal colectomy is suggested versus total colectomy with J-pouch construction vs. ileostomy. Pathology is pending. From my standpoint she could certainly leave or be transferred at any time. Current Visit: Yes (2) Anemia associated with acute blood loss Status: Suspected Assessment and plan: Patient's hematocrit is dropped from 32% down to 28%, and will likely stay at this level due to her chronic blood loss. We will consider transfusion if she drops below 24%. 02/15/17--we are checking the patient's hematocrit on a daily basis, this is dropped down to 28% at last check, we will keep an eye on this post colonoscopy tomorrow. It would not be surprising to see some bleeding after this patient's colonoscopy. Clear liquid diet is advocated, until it can be decided if she needs to go right to surgery. 02/16/17--her hematocrit continues to drop and I am going to go ahead and transfuse her another 2 units packed red blood cells given the amount of tissue damage induced yesterday with a colonoscopy. It would not surprise me if she was weeping some blood from her rectum today. With crit of 23% she likely could benefit from a 2 unit transfusion. Current Visit: Yes (3) Abnormal CT of the abdomen Status: Acute Assessment and plan: As mentioned above the patient has 2 lesions that are likely potential cancers although the transverse lesion is most certainly the primary there may be a secondary sigmoid cancer versus large polyp as well. The patient has the appearance of IVC clot extending down to the right iliac artery with thromboemboli noted in the lungs all suspicious for hypercoagulable state perhaps brought about by the cancer. Medicine is working this up now. 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 02/15/17--this patient also has IVC clot and DVTs in her legs with pulmonary emboli in her lungs. She is at high risk for further pulmonary emboli, this being said she definitely needs to have her colon resected, the cancer may be participating in a hypercoagulable state. 02/16/17--this patient unfortunately still having to deal with and DVTs in her right leg pulmonary emboli, would advise against anticoagulation until surgery is complete. This may be another excellent reason for transfer. Current Visit: Yes (4) Weight loss, unintentional Status: Acute Assessment and plan: Patient states that she has lost 20 pounds over the last 2 months. This is also consistent with colon cancer and decreased p.o. intake. There is a element of ileus on the CT scan as well with some slight dilation of the small bowel. Hopefully she will be able to get prepped appropriately. Antinauseants have been written. 02/15/17--it is not surprising this patient lost weight what is surprising is that she is doing so well without abdominal pain and only mild nausea considering the amount of obstruction in her colon. I will breastfeeding peer counselor her to stay on clear liquids until surgery can be performed, here or elsewhere. 02/16/17--the weight loss is likely due to the patient's transverse colon cancer. Current Visit: Yes Gastroenterology - PN: Subj Interval history: The patient has selected a surgeon in [facility] and wishes and interhospital transfer to that surgeon. This is done very rarely. It might be easier for her to leave the hospital and follow-up with his surgeon as an outpatient and simply have clear liquids in the interim until she sees the surgeon versus the hospitalist calling the surgeon and seeing with the availability years and then arranging inter-hospital transfer. Exam (Progress Note) - Constitutional Vitals: Period Temp Pulse Resp BP Sys/Altamirano Pulse Ox Last 24 Hr 96.4 F-98.3 F 72-93 17-23 90-144/54-91 92-100 General appearance: no acute distress - Head Head exam: Present: normocephalic - Eye Eye exam: Present: EOMI - Respiratory Respiratory exam: Present: clear to auscultation bilaterally - Cardiovascular Cardiovascular exam: Present: regular rate and rhythm - GI/Abdominal GI/Abdominal exam: Present: normal bowel sounds, tenderness (Very minimal periumbilical tenderness to deep palpation), soft. Absent: distended, rebound - Back Exam Back exam: Present: normal inspection - Neurological Exam Neurological exam: Present: alert, oriented X3, CN II-XII intact - Skin Skin exam: Present: warm Results - Labs CBC & BMP: 02/16/17 03:04 02/16/17 03:04
[2017-02-16] MEDS ORDERED: SODIUM CHLORIDE 0.9% 250 ML IV PRN (09:22)
[2017-02-16] MEDS ORDERED: FUROSEMIDE 20 MG/2 ML VIAL IV PRN (09:23)
[2017-02-16] MEDS: SODIUM CHLORIDE 0.9% 1,000 ML IV SCH (09:50)
--- NOTE | 2017-02-16 11:55 | Pathology Report from [facility] ---
ACCESSION # : [id number] PATIENT NAME : Carin Castaneda ORDERING DR : Howard Valentin MD CLINICAL HX: Anemia POST-OP DX: #1 Colon mass @ 80 cm #2 Colon polyp #3 Mass cecum colon #4 Colon mass @ 15 cm SPECIMEN INFO: #1 Biopsy of colon (80 cm transverse) #2 Colon polyp descending #3 Mass @ 40 cm colon biopsy #4 Colon mass @ 15 cm GROSS DESCRIPTION: #1 Received in formalin labeled with the patient's name "CARIN CASTANEDA and #1" consists of a 0.7 x 0.7 cm aggregate of gerard tissue. Submitted in cassette #1.#2 Received in formalin labeled with the patient's name "CARIN CASTANEDA and #2" consists of a 0.9 x 0.5 cm aggregate of gerard tissue. Submitted in cassette #2.#3 Received in formalin labeled with the patient's name "CARIN CASTANEDA and #3" consists of a 1.3 x 1.0 cm aggregate of gerard tissue. Submitted in cassette #3.#4 Received in formalin labeled with the patient's name "CARIN CASTANEDA and #4" consists of multiple red-gerard tissue fragments measuring 2.7 x 1.8 cm in aggregate. Submitted in cassette #4. 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 SERVICE DATE: 02/15/2017 REPORT DATE: 02/16/2017 PATHOLOGIST: Karyn Bales III, M.D. MTDD
--- NOTE | 2017-02-16 13:56 | Hospitalist Progress Note ---
Assessment and Plan (1) Microcytic anemia Status: Acute Current Visit: Yes (2) Weakness generalized Status: Acute Current Visit: Yes (3) Weight loss, unintentional Status: Acute Current Visit: Yes (4) Abnormal CT of the abdomen Status: Acute Assessment and plan: Probable colon cancer. Colonoscopy yesterday. F/u path. Will transfer to [facility] for surgery evaluation. Current Visit: Yes (5) Pulmonary emboli Status: Acute Assessment and plan: Previously on lovenox. Current Visit: Yes (6) DVT (deep venous thrombosis) Status: Acute Current Visit: Yes Hospitalist: Subjective Interval history: Patient feeling better today. Colonoscopy yesterday with 3 masses visualized. The patient and her family would like to transfer care to [facility] to the same surgeon that performed her sister's surgery. Her sister's surgeon is out of town this week. I spoke with her partner, Dr. Hester, who will accept this patient for transfer to [facility]. She will be transferred once a bed there is available. Exam - Constitutional Vitals: Period Temp Pulse Resp BP Sys/Altamirano Pulse Ox Last 24 Hr 97.3 F-98.3 F 72-81 18-23 90-138/54-91 92-100 General appearance: normal weight - Head Head exam: Present: normocephalic, atraumatic - Eye Eye exam: Present: EOMI Pupils: Present: SOPHIA - ENT ENT exam: Present: normal exam - Neck Neck exam: Present: normal inspection. Absent: tenderness - Respiratory Respiratory exam: Present: clear to auscultation bilaterally. Absent: rhonchi, wheezes - Cardiovascular Cardiovascular exam: Present: regular rate and rhythm - GI/Abdominal GI/Abdominal exam: Present: normal bowel sounds, soft. Absent: tenderness, rebound - Extremities Exam Extremities exam: Present: normal inspection - Back Exam Back exam: Present: normal inspection - Neurological Exam Neurological exam: Present: alert, oriented X3 - Psychiatric Psychiatric exam: Present: normal affect, normal mood - Skin Skin exam: Present: warm, intact Results - Labs CBC & BMP: 02/16/17 03:04 02/16/17 03:04
[2017-02-16] MEDS ORDERED: POTASSIUM CHLORIDE RIDER 10 MEQ in PREMIX 1 EACH IV PRN (14:00)
[2017-02-16] MEDS ORDERED: POTASSIUM CHLORIDE 20 MEQ TABLET PO PRN (14:00)
[2017-02-16] MEDS ORDERED: FUROSEMIDE 20 MG/2 ML VIAL IV ONE (17:13)
--- NOTE | 2017-02-16 17:48 | Discharge Summary ---
Hospital Course - Hospital Course Hospital Course: Ms. Castaneda is a 72 year old female with minimal previous medical evaluation. The patient states she was in her usual state of health until about 1 month ago when she had a spell of epidemic nausea vomiting and diarrhea. This symptom was severe for about a week and then became moderate improving and intermittent. The patient had some weight loss. The patient did not notice any bleeding. The patient had mild shortness of breath and since that time has had increasing symptom of weakness. The patient had orthostatic symptoms on the date of admission to the hospital and fell injuring her face with an unguarded fall. The patient denies fever. The patient denies angina. She does report a 20 pound weight loss. The patient was admitted to the hospital for further evaluation. CT scan demonstrated a 7 cm napkin ring deformity in the mid transverse colon with fat stranding around this area very suspicious for colon cancer, also with large polyp in the sigmoid colon. She has a strong family history of colon cancer in her mother and sister bringing up the possibility of Chavis syndrome. The patient does have thrombus in the IVC and bilateral lower extremities which is probably a paraneoplastic process. The patient underwent a colonoscopy with the findings as follows: Colonoscopy demonstrated the following: This is a patient who has 3 separate masses which all appear to be probable cancer, all 3 of these areas were tattooed with Ngozi ink including 15 cm (rectosigmoid) , 40 cm (low descending), and 80 cm (transverse) to help with localization during surgery. Biopsies were taken of all 3 areas and are pending at this time. Per GI, given the large number of polyps seen, strong family hx of colon cancer in mother/sister and 3 masses, serious consideration should be given for subtotal colectomy in this patient versus complete colectomy with J-pouch. Patient with drop in hematocrit today, transfusing 2 units PRBCs. Patient also with UTI, urine culture grew Citrobacter amalonaticus, treating with Ciprofloxacin (started 02/15) The patient has requested to be transferred to [facility] under the care of Dr. Preciado , who performed her sister's surgery. I have spoken with Dr. Hester, who has accepted this patient as a transfer. She will discharged to [facility]. - Time spent with patient Time with patient DS: Less than 30 minutes Diagnosis - Discharge Diagnosis (1) Microcytic anemia Status: Acute (2) Weakness generalized Status: Acute (3) Weight loss, unintentional Status: Acute (4) Abnormal CT of the abdomen Status: Acute (5) Pulmonary emboli Status: Acute (6) DVT (deep venous thrombosis) Status: Acute (7) Mass of colon Status: Acute Discharge Plan - Discharge Data Disposition: Disch/Xfer-[facility] Term Hos Condition at Discharge: Stable Discharge Diet: other (clear liquid diet) Activity: increase activity as tolerated Hygiene: no restrictions Weight Bearing at Discharge: weight bear as tolerated - Follow Up or Referral - Forms/Instructions Exam - Constitutional Vitals: Period Temp Pulse Resp BP Sys/Altamirano Pulse Ox Last 24 Hr 97.3 F-98.5 F 72-81 18-77 101-131/54-76 92-100 General appearance: normal weight - Head Head exam: Present: normocephalic, atraumatic - Eye Eye exam: Present: EOMI Pupils: Present: SOPHIA - ENT ENT exam: Present: normal exam - Neck Neck exam: Present: normal inspection - Respiratory Respiratory exam: Present: clear to auscultation bilaterally. Absent: rales, wheezes - Cardiovascular Cardiovascular exam: Present: regular rate and rhythm - GI/Abdominal GI/Abdominal exam: Present: normal bowel sounds, soft. Absent: tenderness, rebound - Extremities Exam Extremities exam: Present: normal inspection. Absent: edema - Back Exam Back exam: Present: normal inspection - Neurological Exam Neurological exam: Present: alert, oriented X3 - Psychiatric Psychiatric exam: Present: normal affect, normal mood - Skin Skin exam: Present: warm, intact Discharge Results Procedures and tests throughout hospitalization: Pending Orders 02/16/17 03:02 Red Blood Cells Leuko Red Routine Type and Screen Routine Labs on day of discharge: Labs from last 24 hours 02/16/17 02/16/17 02/16/17 Unknown 03:04 03:04 WBC 8.0 D RBC 3.15 L Hgb 7.1 L Hct 23.5 L MCV 74.6 L MCH 23 L MCHC 30.2 L RDW 21.2 H Plt Count 132 MPV 11.3 Neut % (Auto) 74.2 H Lymph % (Auto) 19.1 L [place] % (Auto) 6.0 Eos % (Auto) 0.1 Baso % (Auto) 0.1 Neut # (Auto) 5.9 Lymph # (Auto) 1.5 [place] # (Auto) 0.5 Eos # (Auto) 0.0 Baso # (Auto) 0.0 Immature Gran % 0.5 Nucleated RBC % 0.0 Immature Gran # 0.04 Nucleated RBCs # 0.00 Sodium 145 Potassium 3.3 L Chloride 113 H Carbon Dioxide 23 Anion Gap 12.3 BUN 25 H Creatinine 0.70 GFR Calculation 91 BUN/Creatinine Ratio 35.00 H Glucose 89 Calculated Osmolality 290.7 Calcium 7.2 L Magnesium 2.7 H Blood Type B POSITIVE Antibody Screen Crossmatch 02/16/17 03:02 WBC RBC Hgb Hct MCV MCH MCHC RDW Plt Count MPV Neut % (Auto) Lymph % (Auto) [place] % (Auto) Eos % (Auto) Baso % (Auto) Neut # (Auto) Lymph # (Auto) [place] # (Auto) Eos # (Auto) Baso # (Auto) Immature Gran % Nucleated RBC % Immature Gran # Nucleated RBCs # Sodium Potassium Chloride Carbon Dioxide Anion Gap BUN Creatinine GFR Calculation BUN/Creatinine Ratio Glucose Calculated Osmolality Calcium Magnesium Blood Type B POSITIVE Antibody Screen Negative Crossmatch See Detail DS: Provider Date of admission: 02/13/17 16:10 Primary care physician: . No PCP Attending physician on admission: Curtis Hunter MD Consults: 02/13/17 17:59 Consult to Dietitian [CONS] Routine Reason for Dietitian: Diet Recommendations Consult to Pastoral Services [CONS] Routine Comment: Pastoral Screen: Request Trim Machine Operator Visit 02/13/17 18:20 Consult to Physician [CONS] Routine Comment: nausea, weight loss Consulting Provider: Howard Valentin Person Notified: Dr. Valentin Date Notified: 02/14/17 Time Notified: 09:31 02/13/17 18:23 Consult to Physical Therapy [CONS] Routine Reason for Physical Therapy: Weakness Start Therapy: Tomorrow Consult Comment: dizzy and weak Discharging clinician: Eduard Perez MD
[2017-02-16 22:31] VITALS: BP 122/60
== END 2017-02-16 22:48 | disposition hospice, home (50) | DRG 374 ==
LOC: N.ED 12:39 → SUATTDRO 16:10 → N.EDINP 16:10 → N.TELEN 17:14
PROVIDERS: ADMIT Internal Medicine; ATTEND Internal Medicine

== ENCOUNTER 2017-04-04 23:35 | Inpatient (IN) ==
[2017-04-05] MEDS ORDERED: PANTOPRAZOLE 40 MG VIAL IV STA (00:51)
[2017-04-05] MEDS ORDERED: SODIUM CHLORIDE 0.9% 1,000 ML IV STA (00:51)
[2017-04-05] MEDS ORDERED: ONDANSETRON 4 MG/2 ML VIAL IV STA (00:51)
[2017-04-05] MEDS ORDERED: ONDANSETRON 4 MG/2 ML VIAL ONE (01:01)
[2017-04-05 01:13] LABS: Basophils % 0.1 % (0.0-0.8); Hematocrit 27.2 VOL% (35.7-47.0); Hemoglobin 9.2 GM/DL (12.0-16.0); Immature Granulocytes % 0.8 %; Immature Granulocytes Absolute 0.07 #; Lymphocytes # 1.3 10*3/uL (1.4-4.0); Lymphocytes % 14.2 % (21.3-54.2); Mean Corpuscular HGB Conc 33.8 GM/DL (32-36); Mean Corpuscular Hemoglobin 29 PG (27-34); Mean Platelet Volume 10.2 FL (9.6-12.0); Monocytes # 0.6 10*3/uL (0.11-0.8); Neutrophils # 7.4 10*3/uL (1.4-7.4); Neutrophils % 78.9 % (38.7-73.9); Platelet Count 237 T/CUMM (130-400); Red Cell Distribution Width 25.7 % (9.3-17.3); White Blood Count 9.3 T/CUMM (4-12)
--- NOTE | 2017-04-05 01:18 | Emergency Department Note ---
Matt Rich Brooke, am scribing for, and in the presence of, Ramez Phan MD 00 :56. Emilie Rich Charles R, MD, personally performed the services described in this documentation, ascribed by Yary Gutierrez in my presence, and it is both accurate and complete . Arrival - Arrival Chief Complaint: Nausea/Vomiting/Diarrhea Stated Complaint: n/v ED Nursing Triage Note: tx from [facility] with c/o n/v, ems states patient has vomited x 2 today, scheduled for kub in am, family wanted patient seen tonight. Mode of Arrival: Stretcher Source: Patient, Family, EMS, RN Notes Reviewed Time Seen by Provider: 04/05/17 00:24 - History of Present Illness HPI Narrative: Patient is a 72 year old female brought into the ED by EMS, from [facility], with c/o nausea, vomiting, and confusion. Patient is a poor historian. Family says she think's Patient is dehydrated. Patient has not eaten anything since last Wednesday and states that she "just quit." Family says she took a strawberry shake to Patient and Patient had a little bit but vomited it back up. Family says the vomit is a "light brown color." Family says the usp told her that Patient did drink some orange juice this morning but also vomited it back up. Patient denies having any abdominal pain and says she is no longer nauseated. Family says Patient has been having confusion, at times , where she does not recognize them. The confusion is not normal for the Patient. Family says Patient has probably voiding "less than two times" today. She has PMHx of PVD, colon cancer, IVC filter, and bilateral DVT. Patient's legs are erythematous and Family says that its about the same as it usually is. She has not had any chemotherapy treatments or surgery for the colon cancer and Family says its because Patient is too weak. Family says there are plans to start treatment as soon as the Patient is strong enough. She was discharged from the hospital on March 19, 2017 and Family states that she thinks it was "too soon." Patient's Primary Care Provider is Dr. Noble. Allergies/Adverse Reactions: Allergies Allergy/AdvReac Type Severity Reaction Status Date / Time No Known Allergies Allergy Verified 03/18/17 06:09 Home Medications: Home Medications Medication Instructions Recorded Confirmed Type Ondansetron Tab [Zofran Tab] 4 mg PO QID PRN 03/17/17 03/17/17 History Furosemide Tab [Lasix Tab] 40 mg PO DAILY 7 Days 03/26/17 Rx Warfarin [Coumadin] 2 mg PO DAILY@1800 tablet 03/26/17 Rx Review of System - Review of System 12 point system: reviewed and no additional remarkable complaints except as stated - Review of System Constitutional: Present: other (Not eating). Absent: fever Respiratory: Absent: respiratory distress Gastrointestinal: Present: nausea, vomiting. Absent: abdominal pain Skin: Absent: rash Medical,Surgical,& Family Hx - Medical History Cardio: History of: PVD (Swelling of right greater than left leg) Neurology: No history of: Brain Aneurysm, Cerebral Hemorrhage, Cerebrovascular Accident , Cerebral Palsy, Dementia, Migraine, Multiple Sclerosis, Parkinson's Disease, Peripheral Neuropathy, Seizures, TIA, Vertigo, Neurologocal Cancer Gastrointestinal: History of: Gastrointestinal Cancer (colon ca) Hematology: History of: Bleeding Problems (bilateral DVT), Clotting Problems ( Has IVC filter placed at [facility]) - Surgical History Cardiac Surgeries: Patient Denies: Cardiac Surgery Neurologic Surgeries: Patient denies: Brain Aneurysm, Cerebral Hemorrhage, Neurologic Surgery Abdominal Surgeries: Surgical HX of: Colonoscopy Patient denies: Abdominal Surgery, Appendectomy, Cholecystectomy, Gastric Bypass Surgery, EGD, Hernia Repair - Family History Family History: Reports;: Family Cancer (sister mother), Family Hypertension Denies;: Family Diabetes, Family Heart Disease, Family Stroke - Social History Smoking Status: Never smoker Frequency of Alcohol Use: None Type of Drug Use: None Exam Vital Signs: Vital Signs Temperature 97.0 F L 04/05/17 00:01 Pulse Rate 94 H 04/05/17 00:01 Respiratory Rate 16 04/05/17 00:01 Blood Pressure 99/79 04/05/17 00:01 O2 Sat by Pulse Oximetry 100 04/04/17 23:58 - General General appearance: alert, in no apparent distress, other (sickly appearing) - Head Head exam: Present: atraumatic, normocephalic - Eye Eye exam: Present: other (Pale conjuctiva and sunken orbits.) - ENT ENT exam: Present: mucous membranes dry - Neck Neck exam: Present: normal inspection - Chest Chest inspection: Present: normal inspection, symmetric chest wall rise - Respiratory Respiratory exam: Present: normal lung sounds bilaterally - Cardiovascular Cardiovascular exam: Present: regular rate, normal rhythm, normal heart sounds - Abdominal Exam Abdominal exam: Present: soft. Absent: distention, tenderness - Extremities Exam Extremities exam: Present: pedal edema (+3 bilateral lower extremities), other ( Third spacing due to poor albumin) - Back Exam Back exam: Present: normal inspection - Neurological Exam Neurological exam: Present: alert. Absent: oriented X3 (confusion) - Psychiatric Psychiatric exam: Present: normal affect, normal mood - Skin Skin exam: Present: warm, dry, intact, other (Poor Skin Turgor) Course - Consultations Consultation #1: will admit patient for Dr. Landry Time: 04:15 Results - Labs CBC & BMP: 04/05/17 00:32 04/05/17 00:32 Lab Results: I have reviewed the patients labs Labs: Laboratory Tests 04/05/17 04/05/17 00:32 00:32 RBC 3.20 L Hgb 9.2 L Hct 27.2 L MCV 85.0 L RDW 25.7 H Neut % (Auto) 78.9 H Lymph % (Auto) 14.2 L Lymph # (Auto) 1.3 L BUN 30 H Creatinine 1.20 H BUN/Creatinine Ratio 25.00 H Glucose 113 H Calcium 7.4 L Total Bilirubin 1.20 H Alkaline Phosphatase 122 H Total Protein 3.9 L Albumin 2.1 L Globulin 1.8 L Amylase 4 L Lipase 24.0 L Laboratory Tests 04/05/17 02:00 Urine Blood Small Urine Urobilinogen < 2.0 H Urine Leukocytes Large H Disposition Clinical Impression: Mass of colon, Weight loss, unintentional, Debility, Unsteady gait, Hypoalbuminemia due to protein-calorie malnutrition, UTI (urinary tract infection), Confusion, Sepsis, Anorexia, Recently diagnosed colon cancer, History of pulmonary embolus (PE), Nausea vomiting and diarrhea, Lower extremity edema, Microcytic anemia, History of DVT (deep vein thrombosis) Case discussed with: patient, patient's family Condition: Guarded Time of Disposition: 04:15
[2017-04-05 01:27] LABS: Albumin 2.1 G/DL (3.4-5.0); Bilirubin,Total 1.2 MG/DL (0.2-1.0); Calcium 7.4 MG/DL (8.5-10.1); Magnesium 2.1 MG/DL (1.8-2.4); Osmolality,Calculated 283.5 MOS/KG (273-304); Potassium 3.6 MMOL/L (3.5-5.1); Total Protein 3.9 G/DL (6.4-8.3); Troponin I Only 0.034 NG/ML (0.00-0.045)
[2017-04-05] MEDS ORDERED: PANTOPRAZOLE 40 MG VIAL IV ONE (01:38)
[2017-04-05 02:11] LABS: Apearance,Urine CLOUDY (Clear); Bacteria,Urine Many /HPF (Few); Bilirubin,Urine Negative (Negative); Blood, Urine Small mg/dL (Negative); Glucose,Urine (UA) Negative (Negative); Hyaline Casts,Urine 24 /LPF (0-3); Ketones,Urine Negative (Negative); Nitrite,Urine Negative (Negative); Protein,Urine Negative; RBC,Urine 54 /HPF (0-4); Renal Epithelial Cells,Urine Few /HPF (<1); Squamous Epithelial Cell,Urine Occasional /HPF (0-10); Transitional Epi Cells,Urine Few /HPF (<1); Urine Color Amber (Yellow); Urine Specific Gravity 1.015 (1.001-1.035); Urine Urobilinogen < 2.0 EU/DL (0.2-1.0); WBC,Urine 325 /HPF (0-6)
[2017-04-05] MEDS ORDERED: cefTRIAXone 1,000 MG in SODIUM CHLORIDE 0.9% 100 ML IV STA (04:13)
[2017-04-05 04:50] LABS: Hypochromasia 1+; Ovalocytes Slight
[2017-04-05 04:51] LABS: Microcytosis Slight; Platelet Estimate Adequate
[2017-04-05] MEDS ORDERED: cefTRIAXone 1,000 MG VIAL ONE (05:00)
[2017-04-05] MEDS ORDERED: MAGNESIUM HYDROXIDE SUSP 30 ML UDCUP PO PRN (05:55)
[2017-04-05] MEDS ORDERED: diphenhydrAMINE CAP 25 MG CAPSULE PO PRN (05:55)
[2017-04-05] MEDS ORDERED: traMADol 50 MG TABLET PO PRN (05:55)
[2017-04-05] MEDS ORDERED: BENZTROPINE 2 MG/2 ML AMP IV PRN (05:55)
[2017-04-05] MEDS ORDERED: ACETAMINOPHEN 325 MG TABLET PO PRN (05:55)
[2017-04-05] MEDS ORDERED: guaiFENesin 200 MG/10 ML UDCUP PO PRN (05:55)
[2017-04-05] MEDS ORDERED: ALUMINUM/MAGNES/SIMETH MAX STR 30 ML UDCUP PO PRN (05:55)
[2017-04-05] MEDS ORDERED: TEMAZEPAM 7.5 MG CAPSULE PO PRN (05:55)
[2017-04-05] MEDS ORDERED: SODIUM CHLORIDE 0.9% 1,000 ML IV SCH (05:55)
[2017-04-05] MEDS ORDERED: MYLANTA/LIDO VISC 2:1 300 ML BOTTLE SWISH/SPIT PRN (05:55)
[2017-04-05] MEDS ORDERED: chlorproMAZINE 25 MG TABLET PO PRN (05:55)
[2017-04-05] MEDS ORDERED: LOPERAMIDE 2 MG CAPSULE PO PRN ×2 (05:55)
[2017-04-05] MEDS ORDERED: LACTULOSE 20 GM/30 ML UDCUP PO PRN (05:55)
[2017-04-05] MEDS ORDERED: chlorproMAZINE INJ 25 MG in SODIUM CHLORIDE 0.9% 100 ML IV PRN (05:55)
[2017-04-05] MEDS ORDERED: MYLANTA/LIDO VISC 2:1 300 ML BOTTLE SWISH/SWAL PRN (05:55)
[2017-04-05] MEDS ORDERED: PROMETHAZINE INJ 25 MG in SODIUM CHLORIDE 0.9% 50 ML IV PRN (05:55)
[2017-04-05] MEDS ORDERED: ALPRAZolam 0.25 MG TABLET PO PRN (05:55)
[2017-04-05] MEDS ORDERED: chlorproMAZINE INJ 50 MG in SODIUM CHLORIDE 0.9% 100 ML IV PRN (05:55)
[2017-04-05] MEDS ORDERED: CEFEPIME 1,000 MG in SODIUM CHLORIDE 0.9% 100 ML IV SCH (07:30)
--- NOTE | 2017-04-05 07:47 | XRay Report ---
History: Abdominal pain Date: 04/05/2017 Study: Flat and decubitus abdomen Comparison exam: March 17, 2017 There is no evidence of pneumoperitoneum. There is mild disproportionate small bowel distention. Scattered stool and air are noted in the normal caliber colon. There is no gross mass lesion. There is an infrarenal level IVC filter as before. There is osteopenia. Impression: Disproportionate small bowel dilatation compatible with mild partial small bowel obstruction. Early ileus would be another diagnostic consideration. Otherwise unchanged PROCEDURE INTERPRETED AT [facility] DEPARTMENT OF RADIOLOGY Final Report Signed by: Dr. Suzan Miranda
--- NOTE | 2017-04-05 07:49 | XRay Report ---
History: Abdominal pain Date: 04/05/2017 Study: Chest x-ray single view portable Comparison exam: March 17, 2017 The cardiac silhouette is upper normal in size. There is no mediastinal mass. There is mild aortic arch calcification. There are some scattered emphysematous changes. There is no acute pulmonary infiltrate or gross pleural effusion. There is osteopenia and mild thoracic spondylosis. Impression: No acute cardiopulmonary process compared to the previous study PROCEDURE INTERPRETED AT [facility] DEPARTMENT OF RADIOLOGY Final Report Signed by: Dr. Suzan Miranda
--- NOTE | 2017-04-05 08:22 | Oncology History&Physical ---
Assessment and Plan - Time spent with patient Time spent with patient: Greater than 30 minutes (1) UTI (urinary tract infection) Status: Acute Assessment and plan: We will continue with Rocephin for antimicrobial coverage. Will provide gentle hydration as she does appear slightly dehydrated. I will hold off of any kind of diuresis given her dehydration even though she responded very well during her last hospitalization to albumin and Lasix. We will continue with her Coumadin and check a PT/INR today. She does not seem to be improving as I was hoping and we do not seem to be any closer to starting chemotherapy for colon cancer than we were 2 weeks ago. 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 Castaneda is a 72 year old female advanced colon cancer who we have not been able to treat yet due to severe poor functional status. She has 3 separate primary lesions including one in her rectal region. The other 2 lesions are located in her transcending and descending colon. 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 She is on anticoagulation. We just discharge her to a swing bed 2 weeks ago. It sounds like she was doing well with physical therapy but developed nausea and confusion. She was found to have a UTI in the ER here. Her abdominal x-ray is also consistent with a possible ileus. She was given a dose of Maxipime and Rocephin. She is admitted for further evaluation. On exam this morning she is altered. Her abdomen is not distended but does have decreased bowel sounds. Her family was present in the room and feels like she did not get her scheduled Protonix and Zofran which led to her current condition. I explained to them that these medicines would have not caused her to avoid being in this condition and that she is very sick from advanced colon cancer with significant disability. Home Medications Medication Instructions Recorded Confirmed Type Ondansetron Tab [Zofran Tab] 4 mg PO QID PRN 03/17/17 04/05/17 History Furosemide Tab [Lasix Tab] 40 mg PO DAILY 7 Days 03/26/17 04/05/17 Rx Warfarin [Coumadin] 2 mg PO DAILY@1800 tablet 03/26/17 04/05/17 Rx Allergies Allergy/AdvReac Type Severity Reaction Status Date / Time No Known Allergies Allergy Verified 03/18/17 06:09 Medical,Surgical,& Family Hx - Medical History Cardio: History of: PVD (Swelling of right greater than left leg) Neurology: No history of: Brain Aneurysm, Cerebral Hemorrhage, Cerebrovascular Accident , Cerebral Palsy, Dementia, Migraine, Multiple Sclerosis, Parkinson's Disease, Peripheral Neuropathy, Seizures, TIA, Vertigo, Neurologocal Cancer Gastrointestinal: History of: Gastrointestinal Cancer (colon ca) Hematology: History of: Bleeding Problems (bilateral DVT), Clotting Problems ( Has IVC filter placed at [facility]) - Surgical History Cardiac Surgeries: Patient Denies: Cardiac Surgery Neurologic Surgeries: Patient denies: Brain Aneurysm, Cerebral Hemorrhage, Neurologic Surgery Abdominal Surgeries: Surgical HX of: Colonoscopy Patient denies: Abdominal Surgery, Appendectomy, Cholecystectomy, Gastric Bypass Surgery, EGD, Hernia Repair - Family History Family History: Reports;: Family Cancer (sister mother), Family Hypertension Denies;: Family Diabetes, Family Heart Disease, Family Stroke - Social History Smoking Status: Never smoker Frequency of Alcohol Use: None Type of Drug Use: None - Constitutional Constitutional: Present: fatigue, malaise. Absent: chills, fever(s) - Respiratory Respiratory: Absent: cough - Gastrointestinal Gastrointestinal: Present: nausea, vomiting. Absent: abdominal pain, melena, jaundice - Genitourinary Genitourinary ROS female: Present: dysuria. Absent: hematuria - Psychiatric Psychiatric General: Present: confusion Exam - Constitutional Vitals: Period Temp Pulse Resp BP Sys/Altamirano Pulse Ox Last 24 Hr 96.4 F 84-84 13-17 111-115/57-62 95-99 General appearance: normal weight, no acute distress - Head Head Exam: Present: normal inspection, normocephalic, atraumatic - Eye Eye Exam: Present: EOMI Pupils: Present: PERRL - ENT ENT exam: Present: normal exam, normal oropharynx - Neck Neck exam: Absent: lymphadenopathy, thyromegaly - Respiratory Respiratory exam: Present: CTAB. Absent: wheezes - Cardiovascular Cardiovascular exam: Present: RRR. Absent: irregular rhythm, JVD - GI/Abdominal GI/Abdominal exam: Present: hypoactive bowel sounds, soft. Absent: ascites, distended, firm, guarding - Neurological Exam Neurological exam: Present: altered. Absent: CN II-XII intact - Skin Skin exam: Present: warm, dry Results - Labs CBC & BMP: 04/05/17 00:32 04/05/17 00:32 Lab Results: I have reviewed the past 24 hour labs - Diagnostic Findings Procedure: Chest x-ray: report reviewed by me, KUB x-ray: report reviewed by me
[2017-04-05] MEDS ORDERED: ONDANSETRON 4 MG TABLET PO PRN (08:28)
[2017-04-05 08:41] LABS: Basophils % 0.2 % (0.0-0.8); Eosinophils % 0.2 % (0.00-10.9); Hematocrit 23.5 VOL% (35.7-47.0); Immature Granulocytes % 0.3 %; Immature Granulocytes Absolute 0.02 #; Lymphocytes % 16.3 % (21.3-54.2); Mean Corpuscular HGB Conc 33.6 GM/DL (32-36); Mean Corpuscular Hemoglobin 28 PG (27-34); Mean Corpuscular Volume 84.5 FL (87-102); Mean Platelet Volume 10.1 FL (9.6-12.0); Monocytes # 0.3 10*3/uL (0.11-0.8); Monocytes % 5.1 % (1.7-12.7); Neutrophils # 4.8 10*3/uL (1.4-7.4); Neutrophils % 77.9 % (38.7-73.9); Platelet Count 197 T/CUMM (130-400); Red Blood Count 2.78 MC/CUMM (3.8-5.5); Red Cell Distribution Width 25.4 % (9.3-17.3); White Blood Count 6.1 T/CUMM (4-12)
[2017-04-05 08:55] LABS: Hemoglobin 7.9 GM/DL (12.0-16.0)
[2017-04-05 09:06] LABS: Hypochromasia 1+; Platelet Estimate Adequate
[2017-04-05 09:07] LABS: Microcytosis Slight; Target Cells Few
[2017-04-05 09:14] LABS: Albumin 1.8 G/DL (3.4-5.0); Bilirubin,Total 0.4 MG/DL (0.2-1.0); Calcium 7.1 MG/DL (8.5-10.1); Osmolality,Calculated 284.4 MOS/KG (273-304); Potassium 3.3 MMOL/L (3.5-5.1); Total Protein 3.4 G/DL (6.4-8.3); Uric Acid 8.5 MG/DL (2.6-6.0)
[2017-04-05] MEDS: PANTOPRAZOLE 40 MG VIAL IV SCH (09:20)
[2017-04-05] MEDS: GRANISETRON 1 MG/1 ML VIAL IV SCH (09:23)
[2017-04-05] MEDS: DESITIN 4OZ/NYSTATIN 15 GRAM MIXTURE PASTE TOP SCH ×2 (09:24→22:20)
[2017-04-05] MEDS: SODIUM CHLOR 0.9% KCL 20 MEQ 20 MEQ/1,000 ML BAG IV SCH (15:35)
[2017-04-05] MEDS ORDERED: WARFARIN 2 MG TABLET PO SCH (18:00)
[2017-04-05] MEDS ORDERED: MORPHINE 2 MG/1 ML SYRINGE IV PRN (18:59)
[2017-04-06 03:56] LABS: Basophils % 0.1 % (0.0-0.8); Hemoglobin 8.5 GM/DL (12.0-16.0); Immature Granulocytes % 0.5 %; Immature Granulocytes Absolute 0.04 #; Lymphocytes # 1.1 10*3/uL (1.4-4.0); Lymphocytes % 13.8 % (21.3-54.2); Mean Corpuscular Hemoglobin 29 PG (27-34); Mean Corpuscular Volume 85.3 FL (87-102); Mean Platelet Volume 9.7 FL (9.6-12.0); Monocytes # 0.4 10*3/uL (0.11-0.8); Monocytes % 5.2 % (1.7-12.7); Neutrophils # 6.4 10*3/uL (1.4-7.4); Neutrophils % 80.4 % (38.7-73.9); Platelet Count 225 T/CUMM (130-400); Red Blood Count 2.93 MC/CUMM (3.8-5.5); Red Cell Distribution Width 25.8 % (9.3-17.3); White Blood Count 7.9 T/CUMM (4-12)
[2017-04-06 04:30] LABS: Albumin 1.8 G/DL (3.4-5.0); Bilirubin,Total 0.8 MG/DL (0.2-1.0); Calcium 7.5 MG/DL (8.5-10.1); Magnesium 2.1 MG/DL (1.8-2.4); Osmolality,Calculated 290.8 MOS/KG (273-304); PT Patient Result 70.2 SECS; Potassium 3.5 MMOL/L (3.5-5.1); Total Protein 3.3 G/DL (6.4-8.3)
[2017-04-06 04:32] LABS: INR 5.9
[2017-04-06 04:39] LABS: Anisocytosis 1+; Hypochromasia 2+; Platelet Estimate Normal; Target Cells 1+
[2017-04-06] MEDS: SODIUM CHLOR 0.9% KCL 20 MEQ 20 MEQ/1,000 ML BAG IV SCH ×2 (05:25→23:05)
--- NOTE | 2017-04-06 07:56 | Oncology Progress Note ---
Assessment and Plan (1) UTI (urinary tract infection) Status: Acute Assessment and plan: We will continue with Rocephin for antimicrobial coverage. Will provide gentle hydration as she does appear slightly dehydrated. I will hold off of any kind of diuresis given her dehydration even though she responded very well during her last hospitalization to albumin and Lasix. We will continue with her Coumadin and check a PT/INR today. She does not seem to be improving as I was hoping and we do not seem to be any closer to starting chemotherapy for colon cancer than we were 2 weeks ago. 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 Castaneda is a 72-year-old female with advanced colon cancer who was readmitted yesterday after being at a swing bed for 2 weeks. She was readmitted due to confusion and was found to have a UTI. She was begun on Rocephin but over the last 24 hours she has continued to decline. This morning she is nonresponsive and her pupils are dilated and fixed. Her INR is slightly elevated at 5 so we will have to consider her as possibly having a brain bleed. We will set up a CT of her head this morning. I had a lengthy discussion with her sister about her poor prognosis and her current clinical situation. We have all agreed that she will be DNR if she continues to worsen. I told the sister to notify family just in case she continues to decline as rapidly as she has over the last 24 hours. Her lab work does not point to any type of underlying etiology for her confusion. Exam - Constitutional Vitals: Period Temp Pulse Resp BP Sys/Altamirano Pulse Ox Last 24 Hr 96.0 F-97.8 F 82-120 18-20 109-151/62-82 96-97 General appearance: normal weight, no acute distress - Head Head Exam: Present: normocephalic, atraumatic - Eye Eye Exam: Present: other (Pupils fixed and dilated with a downward conjugate gaze) - Neck Neck exam: Absent: lymphadenopathy, thyromegaly - Respiratory Respiratory exam: Present: CTAB. Absent: wheezes - Cardiovascular Cardiovascular exam: Present: RRR. Absent: irregular rhythm, JVD - GI/Abdominal GI/Abdominal exam: Present: soft. Absent: ascites, mass - Neurological Exam Neurological exam: Present: altered, other (Patient is not responding to external stimuli.) Results - Labs CBC & BMP: 04/06/17 02:56 04/06/17 02:56
--- NOTE | 2017-04-06 08:46 | XRay Report ---
Portable chest Date: 04/06/2017 Clinical history: Shortness of breath Comparison: 04/05/2017 Technique: Portable AP sitting chest Findings: The heart remains normal in size. Expiratory chest with progressive density at the lung bases with possible small pleural effusions. Skin folds limit evaluation of chest. Degenerative changes with osteopenia. Impression: Limited expiratory chest with progressive atelectasis/infiltration/edema at the lung bases with small pleural effusions. Skin folds limit the exam. PROCEDURE INTERPRETED AT [facility] DEPARTMENT OF RADIOLOGY Final Report Signed by: Dr. Quiana Rice
--- NOTE | 2017-04-06 09:25 | CT Report ---
Exam: CT scan of brain without contrast Date: 04/06/2017 Indication: Confusion, history of colorectal cancer Comparison: 02/13/2017 Patient's classification: Inpatient Technical: Images were obtained from the skull base to the vertex without the use of intravenous contrast. Dose reduction was performed with decreasing kv and mA and automated exposure Total DLP: 1025.6 mGy*cm Findings: Minimal small vessel changes in the periventricular subcortical white matter regions. The cerebellum reveals component of mild atrophic changes. The ventricles are unremarkable. Mild atrophy of the cerebral hemispheres. There is calcification along the falx cerebri present. There is basal ganglia calcification present on the right. The paranasal sinuses globes and cell and mastoids are otherwise intact. Impression: 1. Mild atrophy of the cerebellum and cerebral hemispheres 2. Small vessel ischemic change 3. No obvious acute hemorrhage, infarction or mass effect clearly seen on the noncontrast study. If additional imaging is warranted postcontrast exam or MRI with contrast may be beneficial PROCEDURE INTERPRETED AT [facility] DEPARTMENT OF RADIOLOGY Final Report Signed by: Dr. Carloz Nagy
[2017-04-06] MEDS: DESITIN 4OZ/NYSTATIN 15 GRAM MIXTURE PASTE TOP SCH ×2 (09:46→21:03)
[2017-04-06] MEDS: cefTRIAXone 1,000 MG in SODIUM CHLORIDE 0.9% 100 ML IV SCH (09:50)
[2017-04-06] MEDS: GRANISETRON 1 MG/1 ML VIAL IV SCH (09:55)
[2017-04-06] MEDS: PANTOPRAZOLE 40 MG VIAL IV SCH (09:57)
--- NOTE | 2017-04-06 11:41 | Event Note ---
CT head is negative. Ammonia level is elevated at 115. I will place her on Lactulose to see if we can lowel her ammonia level. I will hold off on Neuro consult for now.
[2017-04-06] MEDS ORDERED: LACTULOSE 20 GM/30 ML UDCUP PO SCH (12:00)
[2017-04-06 14:54] LABS: Apearance,Urine CLEAR (Clear); Bilirubin,Urine Negative (Negative); Blood, Urine Negative (Negative); Glucose,Urine (UA) Negative (Negative); Ketones,Urine Negative (Negative); Mucus,Urine Occasional /LPF (Occasional); Nitrite,Urine Negative (Negative); Protein,Urine Negative; RBC,Urine <1 /HPF (0-4); Squamous Epithelial Cell,Urine Occasional /HPF (0-10); Urine Color Yellow (Yellow); Urine Specific Gravity 1.015 (1.001-1.035); Urine Urobilinogen < 2.0 EU/DL (0.2-1.0); WBC,Urine 1 /HPF (0-6)
[2017-04-06] MEDS: ONDANSETRON 4 MG/2 ML VIAL IV PRN (21:00)
[2017-04-06] MEDS: LACTULOSE 20 GM/30 ML UDCUP PO SCH (21:03)
[2017-04-07 05:06] LABS: Eosinophils % 0.1 % (0.00-10.9); Hematocrit 25.5 VOL% (35.7-47.0); Hemoglobin 8.3 GM/DL (12.0-16.0); Immature Granulocytes % 0.6 %; Immature Granulocytes Absolute 0.05 #; Lymphocytes # 1.1 10*3/uL (1.4-4.0); Lymphocytes % 13.5 % (21.3-54.2); Mean Corpuscular HGB Conc 32.5 GM/DL (32-36); Mean Corpuscular Hemoglobin 29 PG (27-34); Mean Corpuscular Volume 88.5 FL (87-102); Mean Platelet Volume 9.9 FL (9.6-12.0); Monocytes # 0.5 10*3/uL (0.11-0.8); Monocytes % 6.1 % (1.7-12.7); Neutrophils # 6.5 10*3/uL (1.4-7.4); Neutrophils % 79.7 % (38.7-73.9); Platelet Count 259 T/CUMM (130-400); Red Blood Count 2.88 MC/CUMM (3.8-5.5); Red Cell Distribution Width 26.5 % (9.3-17.3); White Blood Count 8.2 T/CUMM (4-12)
[2017-04-07 05:40] LABS: Albumin 1.8 G/DL (3.4-5.0); Bilirubin,Total 0.9 MG/DL (0.2-1.0); Calcium 7.1 MG/DL (8.5-10.1); Osmolality,Calculated 295.6 MOS/KG (273-304); Potassium 3.9 MMOL/L (3.5-5.1); Total Protein 3.4 G/DL (6.4-8.3)
[2017-04-07 05:51] LABS: Hypochromasia 1+; Microcytosis Slight; Ovalocytes Slight; Platelet Estimate Adequate
--- NOTE | 2017-04-07 08:05 | Oncology Progress Note ---
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 Castaneda is still nonresponsive. Her CT head showed no evidence of bleed yesterday. Her gaze is still downward into the right. Her ammonia level is elevated at 115. She shows no other evidence of hepatic insufficiency. I am treating her as hepatic encephalopathy secondary to the elevated ammonia but I am uncertain if this is truly causing her confusion. She has an NG tube in place to go to give her lactulose. She also has a rectal tube in place. Given that she has normal liver function and the specificity of an elevated ammonia level is low, I will go ahead and consult neurology for evaluation. I have not done an MRI of her brain or lumbar puncture yet. I will hold off on these until neurology sees her. We will continue with lactulose for now. She is DNR given her age and her advanced cancer. Recheck her PT and INR in the morning since we have held her Coumadin. She has a known history of extensive lower extremity DVTs that I would like to continue treating if within reason. Her CBC is stable. Her kidney function is stable. On exam she does have a slightly distended abdomen but it is soft with positive bowel sounds. Her abdominal x-ray on admission showed slightly dilated small intestine. If her rectal tube stops producing stool, we would repeat a KUB out of concern for possible bowel obstruction. Exam - Constitutional Vitals: Period Temp Pulse Resp BP Sys/Altamirano Pulse Ox Last 24 Hr 96.1 F-98.6 F 105-120 17- 104-144/57-74 90-97 Results - Labs CBC & BMP: 04/07/17 04:33 04/07/17 04:33
[2017-04-07] MEDS: SODIUM CHLOR 0.9% KCL 20 MEQ 20 MEQ/1,000 ML BAG IV SCH ×2 (08:28→15:12)
[2017-04-07] MEDS: GRANISETRON 1 MG/1 ML VIAL IV SCH (09:15)
[2017-04-07] MEDS: cefTRIAXone 1,000 MG in SODIUM CHLORIDE 0.9% 100 ML IV SCH (09:15)
[2017-04-07] MEDS: PANTOPRAZOLE 40 MG VIAL IV SCH (09:15)
[2017-04-07] MEDS: LACTULOSE 20 GM/30 ML UDCUP PO SCH ×3 (09:16→20:47)
[2017-04-07] MEDS: DESITIN 4OZ/NYSTATIN 15 GRAM MIXTURE PASTE TOP SCH ×2 (09:36→21:00)
--- NOTE | 2017-04-07 15:58 | Neurology Consult Note ---
History of Present Illness History of present illness: Ms. Castaneda is a 72 year old female advanced colon cancer who have not been able to get any treatment yet due to severe poor functional status. She has 3 separate primary lesions including one in her rectal region. The other 2 lesions are located in her transcending and descending colon. 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 She is on anticoagulation. She just got discharge to a swing bed 2 weeks ago. She was doing okay with physical therapy but developed nausea and confusion. She was found to have a UTI in the ER here. Her abdominal x-ray is also consistent with a possible ileus. She was given a dose of Maxipime and Rocephin. Family reported that since Wednesday morning she has quit talking and she just keeping her eyes closed. She is not responding at all. CT of the head revealed no acute abnormalities. She is admitted for further evaluation. Her ammonia level has gone up to 121. Home Medications Medication Instructions Recorded Confirmed Type Ondansetron Tab [Zofran Tab] 4 mg PO QID PRN 03/17/17 04/05/17 History Furosemide Tab [Lasix Tab] 40 mg PO DAILY 7 Days 03/26/17 04/05/17 Rx Warfarin [Coumadin] 2 mg PO DAILY@1800 tablet 03/26/17 04/05/17 Rx Allergies Allergy/AdvReac Type Severity Reaction Status Date / Time No Known Allergies Allergy Verified 03/18/17 06:09 ROS unobtainable: due to mental status Medical,Surgical,& Family Hx - Medical History Cardio: History of: PVD (Swelling of right greater than left leg) Neurology: No history of: Brain Aneurysm, Cerebral Hemorrhage, Cerebrovascular Accident , Cerebral Palsy, Dementia, Migraine, Multiple Sclerosis, Parkinson's Disease, Peripheral Neuropathy, Seizures, TIA, Vertigo, Neurologocal Cancer Gastrointestinal: History of: Gastrointestinal Cancer (colon ca) Hematology: History of: Bleeding Problems (bilateral DVT), Clotting Problems ( Has IVC filter placed at [facility]) - Surgical History Cardiac Surgeries: Patient Denies: Cardiac Surgery Neurologic Surgeries: Patient denies: Brain Aneurysm, Cerebral Hemorrhage, Neurologic Surgery Abdominal Surgeries: Surgical HX of: Colonoscopy Patient denies: Abdominal Surgery, Appendectomy, Cholecystectomy, Gastric Bypass Surgery, EGD, Hernia Repair - Family History Family History: Reports;: Family Cancer (sister mother), Family Hypertension Denies;: Family Diabetes, Family Heart Disease, Family Stroke - Social History Smoking Status: Never smoker Frequency of Alcohol Use: None Type of Drug Use: None Exam - Constitutional Vitals: Period Temp Pulse Resp BP Sys/Altamirano Pulse Ox Last 24 Hr 96.1 F-98.7 F 109-120 17- 104-121/56-74 90-97 Exam: GENERAL: Patient is in no acute distress. NECK: Neck is supple. There is no JVD. No carotid bruits present. No thyroid masses. CVS: First and second heart sounds are normal. There is no S3 present. Regular rate and rhythm. RESPIRATORY: Lungs are clear to auscultation without any rales or rhonchi. ABDOMEN: Soft and non-tender. Bowel sounds are present. There is no hepatosplenomegaly. EXT: There is 2+ palpable edema in the lower extremity. Skin: No rashes Central Nervous system: General: Unresponsive to even deep painful stimuli Speech: None Comprehension: None Facial expressions: Normal Cranial Nerves: Pupils are sluggish but reactive. Doll's head eye movements are positive. No facial asymmetry is seen. Motor: Bulk and Tone is normal. Strength cannot be assessed Sensory: Cannot be assessed Reflexes: 1+ and symmetrical Cerebellar function: Cannot be assessed Toes: Equivocal Gait: Cannot be assessed Results - Labs CBC & BMP: 04/07/17 04:33 04/07/17 04:33 Assessment and Plan (1) Encephalopathy Status: Acute Assessment and plan: I suspect this is likely due to hyperammonemia. No clear evidence of any lesion on the head CT scan. We will go ahead and perform EEG Probably will do MRI but I would like to hold off to it until we get ammonia level down. We will watch her closely Thank you for the count Current Visit: Yes
[2017-04-08] MEDS: SODIUM CHLOR 0.9% KCL 20 MEQ 20 MEQ/1,000 ML BAG IV SCH ×2 (05:05→23:21)
[2017-04-08] MEDS: ONDANSETRON 4 MG/2 ML VIAL IV PRN (06:54)
--- NOTE | 2017-04-08 08:15 | Oncology Progress Note ---
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 Castaneda is more awake and alert today. She is now having nausea and vomiting so we are having to do intermittent suction to her NG tube. We will continue to give lactulose as tolerated. Repeat a KUB of her abdomen to look for further distention of her bowels. On exam her abdomen is soft and there is faint bowel sounds. I am concerned that she may be obstructing her colonic lumen from 1 of her 3 separate colon primaries. She is in no physical condition to handle a surgery for a bypassing ostomy. Even though she is waking up some she is still nowhere near at a place where we could consider any type of treatment. I am unsure if she will actually ever leave the hospital in her current state. She still has significant lower extremity edema. Her lungs are clear. Her prognosis is very poor. Exam - Constitutional Vitals: Period Temp Pulse Resp BP Sys/Altamirano Pulse Ox Last 24 Hr 97.6 F-98.7 F 107-116 18-20 95-109/51-69 92-97 General appearance: normal weight, no acute distress - Head Head Exam: Present: normocephalic, atraumatic - Eye Pupils: Present: PERRL - Neck Neck exam: Absent: lymphadenopathy, thyromegaly - Respiratory Respiratory exam: Present: CTAB. Absent: wheezes - Cardiovascular Cardiovascular exam: Present: RRR. Absent: JVD - GI/Abdominal GI/Abdominal exam: Present: soft. Absent: ascites, mass Results - Labs CBC & BMP: 04/07/17 04:33 04/07/17 04:33 Lab Results: I have reviewed the past 24 hour labs
[2017-04-08 08:16] LABS: Basophils % 0.1 % (0.0-0.8); Eosinophils % 0.1 % (0.00-10.9); Hematocrit 25.4 VOL% (35.7-47.0); Hemoglobin 8.2 GM/DL (12.0-16.0); Immature Granulocytes % 0.4 %; Immature Granulocytes Absolute 0.04 #; Lymphocytes # 1.3 10*3/uL (1.4-4.0); Lymphocytes % 13.9 % (21.3-54.2); Mean Corpuscular HGB Conc 32.3 GM/DL (32-36); Mean Corpuscular Hemoglobin 29 PG (27-34); Mean Corpuscular Volume 90.1 FL (87-102); Mean Platelet Volume 9.8 FL (9.6-12.0); Monocytes # 0.5 10*3/uL (0.11-0.8); Monocytes % 5.5 % (1.7-12.7); Neutrophils # 7.2 10*3/uL (1.4-7.4); Platelet Count 271 T/CUMM (130-400); Red Blood Count 2.82 MC/CUMM (3.8-5.5); Red Cell Distribution Width 26.5 % (9.3-17.3)
[2017-04-08 08:31] LABS: Hypochromasia Slight; Microcytosis 1+; Target Cells Few
[2017-04-08 08:32] LABS: Platelet Estimate Normal; Spherocytes Slight
[2017-04-08 08:33] LABS: PT Patient Result 59.1 SECS
[2017-04-08 08:47] LABS: Albumin 1.7 G/DL (3.4-5.0); Bilirubin,Total 0.5 MG/DL (0.2-1.0); Calcium 7.1 MG/DL (8.5-10.1); Osmolality,Calculated 301.1 MOS/KG (273-304); Total Protein 3.5 G/DL (6.4-8.3)
[2017-04-08] MEDS ORDERED: VANCOMYCIN INJ 1,250 MG in SODIUM CHLORIDE 0.9% 250 ML IV SCH (09:00)
--- NOTE | 2017-04-08 09:08 | XRay Report ---
Exam: XR abdomen 1V Date: 04/08/2017 8:11 AM Indication: Abdominal pain and distention nausea vomiting Comparison: 04/05/2017 Technical: AP supine Findings: IVC filter is present. Some mild reactive bowel in the right lower quadrant. The liver shadow is unremarkable. The spleen and renal shadows are mostly obscured. The stomach is slightly distended. Bony structures are intact. Small area of density is present over the pelvis measuring approximately 17 mm by approximately 2.5 cm Impression: 1. IVC filter 2. Partial small bowel obstructive process suspected 3. Small area of the density or tubing over the rectal region PROCEDURE INTERPRETED AT [facility] DEPARTMENT OF RADIOLOGY Final Report Signed by: Dr. Carloz Nagy
[2017-04-08] MEDS: GRANISETRON 1 MG/1 ML VIAL IV SCH (09:22)
[2017-04-08] MEDS: PANTOPRAZOLE 40 MG VIAL IV SCH (09:25)
[2017-04-08] MEDS: cefTRIAXone 1,000 MG in SODIUM CHLORIDE 0.9% 100 ML IV SCH (09:32)
[2017-04-08] MEDS: DESITIN 4OZ/NYSTATIN 15 GRAM MIXTURE PASTE TOP SCH ×2 (09:45→22:36)
[2017-04-08] MEDS: LACTULOSE 20 GM/30 ML UDCUP PO SCH ×3 (09:52→21:06)
--- NOTE | 2017-04-08 16:11 | Neurology Progress Note ---
Neurology - PN : Subjective Interval history: Patient seems to be doing well mentally today. She woke up this morning around 5 and has been talking fine ever since. She is alert awake and oriented 3. Fluent speech. Good comprehension Exam (Progress Note) - Constitutional Vitals: Period Temp Pulse Resp BP Sys/Altamirano Pulse Ox Last 24 Hr 97.1 F-99.3 F 100-110 18-20 95-115/51-65 92-98 Exam: GENERAL: Patient is in no acute distress. NECK: Neck is supple. There is no JVD. No carotid bruits present. No thyroid masses. CVS: First and second heart sounds are normal. There is no S3 present. Regular rate and rhythm. RESPIRATORY: Lungs are clear to auscultation without any rales or rhonchi. ABDOMEN: Soft and non-tender. Bowel sounds are present. There is no hepatosplenomegaly. EXT: There is 2+ palpable edema in the lower extremity. Skin: No rashes Central Nervous system: General: Alert and awake and oriented 2 Speech: Fluent Comprehension: Intact and normal Facial expressions: Normal Cranial Nerves: Pupils are sluggish but reactive. Extraocular movements are intact. No facial asymmetry is seen. Motor: Bulk and Tone is normal. Strength symmetrical Sensory: Cannot be assessed Reflexes: 1+ and symmetrical Cerebellar function: Slow [id number] Toes: Equivocal Gait: Cannot be assessed Results - Labs CBC & BMP: 04/08/17 07:52 04/08/17 07:52 Assessment and Plan (1) Encephalopathy Status: Acute Assessment and plan: I suspect this is likely due to hyperammonemia. No clear evidence of any lesion on the head CT scan. Continue watchful observation. Patient is doing fairly well from neuro standpoint Current Visit: Yes
[2017-04-08] MEDS: LINEZOLID INJ 600 MG in PREMIX 1 EACH IV SCH (17:30)
[2017-04-09] MEDS: LINEZOLID INJ 600 MG in PREMIX 1 EACH IV SCH ×2 (05:42→18:16)
[2017-04-09 07:44] LABS: Eosinophils # 0.1 10*3/uL (0.0-0.87); Hematocrit 24.2 VOL% (35.7-47.0); Hemoglobin 7.7 GM/DL (12.0-16.0); Immature Granulocytes % 0.8 %; Immature Granulocytes Absolute 0.06 #; Lymphocytes # 1.2 10*3/uL (1.4-4.0); Lymphocytes % 16.8 % (21.3-54.2); Mean Corpuscular HGB Conc 31.8 GM/DL (32-36); Mean Corpuscular Hemoglobin 29 PG (27-34); Monocytes # 0.4 10*3/uL (0.11-0.8); Monocytes % 5.7 % (1.7-12.7); Neutrophils # 5.4 10*3/uL (1.4-7.4); Neutrophils % 75.7 % (38.7-73.9); Platelet Count 266 T/CUMM (130-400); Red Blood Count 2.63 MC/CUMM (3.8-5.5); Red Cell Distribution Width 26.5 % (9.3-17.3); White Blood Count 7.2 T/CUMM (4-12)
[2017-04-09 07:52] LABS: INR 3.6; PT Patient Result 40.9 SECS
[2017-04-09 08:02] LABS: Hypochromasia 1+; Microcytosis 1+; Ovalocytes Few; Platelet Estimate Adequate
[2017-04-09 08:11] LABS: Calcium 7.1 MG/DL (8.5-10.1); Potassium 3.9 MMOL/L (3.5-5.1)
[2017-04-09] MEDS ORDERED: SODIUM CHLORIDE 0.9% 250 ML IV PRN (09:26)
[2017-04-09] MEDS: GRANISETRON 1 MG/1 ML VIAL IV SCH (09:28)
[2017-04-09] MEDS: PANTOPRAZOLE 40 MG VIAL IV SCH (09:30)
[2017-04-09] MEDS: LACTULOSE 20 GM/30 ML UDCUP PO SCH ×3 (09:34→20:58)
[2017-04-09] MEDS: DESITIN 4OZ/NYSTATIN 15 GRAM MIXTURE PASTE TOP SCH ×2 (09:34→20:58)
[2017-04-09] MEDS: SODIUM CHLORIDE 0.45% 1,000 ML IV SCH (09:34)
--- NOTE | 2017-04-09 09:37 | Oncology Progress Note ---
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 Castaneda is a 72-year-old white female with advanced colon cancer with 3 separate primary lesions that we have yet to start treatment for due to severe disability and diffuse lower extremity DVTs causing severe edema. She has been on Coumadin to treat her DVTs. Her INR remains above 3 so we have held this during her entire hospital stay. She was admitted from a rehab center earlier this week due to nausea and confusion. She was found to have an elevated ammonia level and UTI. Her urine is growing VRE and I am treating this with Zyvox. I have treated her ammonia level with lactulose. She shows no evidence of liver dysfunction so I am unsure why she had hyperammonemia. She does have some evidence of a small bowel obstruction and required NG tube to be placed over the past 2 days. She is now more awake and alert. We will turn off the suction to her NG tube and let her start trying clear liquids. If she does not develop any nausea vomiting while the NG tube is off of suction for most of the day we will have this removed. She is still a long was removed from being anywhere near able to tolerate chemotherapy. My goal at this point will be to resume physical therapy and slowly advance her diet so that she is taking in good p.o. intake. We are continuing to hold her Coumadin since her INR is 3.6. Her hemoglobin is 7.7 today so I will give her 2 units of blood. I am unsure if she will ever be in a physical condition to receive chemotherapy but we will continue making that our goal for the time being. Exam - Constitutional Vitals: Period Temp Pulse Resp BP Sys/Altamirano Pulse Ox Last 24 Hr 96.9 F-98.1 F 89-100 18-20 101-125/56-63 90-98 General appearance: normal weight, no acute distress - Head Head Exam: Present: normocephalic, atraumatic - Eye Eye Exam: Present: EOMI Pupils: Present: PERRL - ENT ENT exam: Present: normal exam, normal oropharynx - Neck Neck exam: Absent: lymphadenopathy, thyromegaly - Respiratory Respiratory exam: Present: CTAB. Absent: wheezes - Cardiovascular Cardiovascular exam: Present: RRR. Absent: JVD - GI/Abdominal GI/Abdominal exam: Present: soft. Absent: ascites, distended, mass - Neurological Exam Neurological exam: Present: alert, oriented X3 - Psychiatric Psychiatric exam: Present: normal affect, normal mood Results - Labs CBC & BMP: 04/09/17 07:16 04/09/17 07:16 Lab Results: I have reviewed the past 24 hour labs
[2017-04-10] MEDS: SODIUM CHLOR 0.9% KCL 20 MEQ 20 MEQ/1,000 ML BAG IV SCH (01:30)
[2017-04-10] MEDS: SODIUM CHLORIDE 0.45% 1,000 ML IV SCH ×2 (01:31→20:49)
[2017-04-10] MEDS: LINEZOLID INJ 600 MG in PREMIX 1 EACH IV SCH ×2 (04:58→16:44)
[2017-04-10 05:41] LABS: Basophils % 0.1 % (0.0-0.8); Eosinophils # 0.1 10*3/uL (0.0-0.87); Eosinophils % 0.9 % (0.00-10.9); Hematocrit 37.1 VOL% (35.7-47.0); Immature Granulocytes % 0.9 %; Immature Granulocytes Absolute 0.07 #; Lymphocytes # 1.4 10*3/uL (1.4-4.0); Lymphocytes % 18.3 % (21.3-54.2); Mean Corpuscular HGB Conc 33.2 GM/DL (32-36); Mean Corpuscular Hemoglobin 30 PG (27-34); Mean Corpuscular Volume 89.2 FL (87-102); Monocytes # 0.5 10*3/uL (0.11-0.8); Monocytes % 6.7 % (1.7-12.7); NRBC # 0.02 10*3/uL; Neutrophils # 5.7 10*3/uL (1.4-7.4); Neutrophils % 73.1 % (38.7-73.9); Platelet Count 241 T/CUMM (130-400); Red Cell Distribution Width 22.5 % (9.3-17.3); White Blood Count 7.8 T/CUMM (4-12)
[2017-04-10 06:04] LABS: Hemoglobin 12.3 GM/DL (12.0-16.0); Red Blood Count 4.16 MC/CUMM (3.8-5.5)
[2017-04-10 06:14] LABS: INR 2.3
[2017-04-10 06:16] LABS: Albumin 1.7 G/DL (3.4-5.0); Bilirubin,Total 0.7 MG/DL (0.2-1.0); Calcium 7.1 MG/DL (8.5-10.1); Osmolality,Calculated 299.4 MOS/KG (273-304); Potassium 3.8 MMOL/L (3.5-5.1); Total Protein 3.6 G/DL (6.4-8.3)
[2017-04-10 06:17] LABS: PT Patient Result 25.3 SECS
[2017-04-10 06:39] LABS: Eosinophils 1 % (0-10); Lymphocytes 17 % (20-55); Segmented Neutrophils 78 % (50-85); Total Cells Counted 100
[2017-04-10 06:40] LABS: Platelet Estimate Normal
[2017-04-10] MEDS: GRANISETRON 1 MG/1 ML VIAL IV SCH (09:12)
[2017-04-10] MEDS: PANTOPRAZOLE 40 MG VIAL IV SCH (09:12)
[2017-04-10] MEDS: DESITIN 4OZ/NYSTATIN 15 GRAM MIXTURE PASTE TOP SCH ×2 (09:13→20:50)
--- NOTE | 2017-04-10 11:10 | Oncology Progress Note ---
Oncology Subjective PN Interval history: Ms. Castaneda is a 72-year-old white female with advanced colon cancer with additional problems that have disrupted chemotherapy. She has never had chemotherapy for it. She has diffuse lower extremity DVTs causing severe edema. She has been on Coumadin to treat her DVTs. Her INR remains above 3 so we have held this during her entire hospital stay. She was admitted from a rehab center earlier this week due to nausea and confusion. On admission she was found to have an elevated ammonia level. She has been treated and is more alert now. She had a prolonged INR on admission and progressive anemia which she was transfused. I wonder if she has borderline liver function, for whatever reason, and the GI bleed culture ammonia level to rise further. Today she is resting relatively comfortably. Her speech pattern is somewhat lethargic and slow and she tends to ramble sounds but she is for the most part oriented. Her lungs are clear and her heart sounds are normal. She has protuberance of her abdomen with apparent ascites but she is not particularly tender. She has edema of her arms which I suspect is related to the low serum albumin level. She has had problems voiding and she initially had a bladder catheter that was removed. We are replacing it now because of her difficulty voiding. Urine cultures are positive for VRE. She is on Zyvox. Her INR today is down to 2.3. I am not resuming Coumadin yet. Her hemoglobin was 12.3 today after transfusion. Exam - Constitutional Vitals: Period Temp Pulse Resp BP Sys/Altamirano Pulse Ox Last 24 Hr 97.9 F-98.8 F 90-112 18-20 106-122/62-76 96-98 Results - Labs CBC & BMP: 04/10/17 04:51 04/10/17 04:51
[2017-04-10] MEDS: LACTULOSE 20 GM/30 ML UDCUP PO SCH ×3 (14:43→20:44)
[2017-04-11 05:17] LABS: Basophils % 0.1 % (0.0-0.8); Eosinophils # 0.1 10*3/uL (0.0-0.87); Eosinophils % 1.1 % (0.00-10.9); Hematocrit 38.5 VOL% (35.7-47.0); Hemoglobin 12.9 GM/DL (12.0-16.0); Immature Granulocytes % 0.9 %; Immature Granulocytes Absolute 0.08 #; Lymphocytes # 1.7 10*3/uL (1.4-4.0); Lymphocytes % 18.8 % (21.3-54.2); Mean Corpuscular HGB Conc 33.5 GM/DL (32-36); Mean Corpuscular Hemoglobin 30 PG (27-34); Mean Corpuscular Volume 89.1 FL (87-102); Mean Platelet Volume 10.6 FL (9.6-12.0); Monocytes # 0.6 10*3/uL (0.11-0.8); Neutrophils # 6.5 10*3/uL (1.4-7.4); Neutrophils % 72.1 % (38.7-73.9); Platelet Count 215 T/CUMM (130-400); Red Blood Count 4.32 MC/CUMM (3.8-5.5); Red Cell Distribution Width 22.6 % (9.3-17.3)
[2017-04-11 05:27] LABS: INR 2.1
[2017-04-11 05:34] LABS: PT Patient Result 22.7 SECS
[2017-04-11 05:52] LABS: Albumin 1.5 G/DL (3.4-5.0); Bilirubin,Total 1.2 MG/DL (0.2-1.0); Calcium 7.1 MG/DL (8.5-10.1); Osmolality,Calculated 290.1 MOS/KG (273-304); Potassium 4.3 MMOL/L (3.5-5.1); Total Protein 3.4 G/DL (6.4-8.3)
[2017-04-11 05:59] LABS: Hypochromasia Slight; Microcytosis 1+; Platelet Estimate Adequate; Target Cells Slight
[2017-04-11] MEDS: LINEZOLID INJ 600 MG in PREMIX 1 EACH IV SCH ×2 (06:01→17:37)
[2017-04-11] MEDS: SODIUM CHLORIDE 0.45% 1,000 ML IV SCH ×2 (06:04→15:00)
[2017-04-11] MEDS: DESITIN 4OZ/NYSTATIN 15 GRAM MIXTURE PASTE TOP SCH ×2 (09:29→21:35)
[2017-04-11] MEDS: GRANISETRON 1 MG/1 ML VIAL IV SCH (09:30)
[2017-04-11] MEDS: PANTOPRAZOLE 40 MG VIAL IV SCH (09:33)
[2017-04-11] MEDS: LACTULOSE 20 GM/30 ML UDCUP PO SCH ×3 (09:35→21:32)
--- NOTE | 2017-04-11 10:09 | Oncology Progress Note ---
Oncology Subjective PN Interval history: Ms. Castaneda was admitted with unresponsiveness and an elevated ammonia level and a history of metastatic adenocarcinoma of the colon.She has never had chemotherapy for it. She has diffuse lower extremity DVTs causing severe edema. She has been on Coumadin to treat her DVTs. Her INR remains above 3 so we have held this during this hospital stay. She was admitted from a rehab center earlier this week due to nausea and confusion. On admission she was found to have an elevated ammonia level. She has been treated and is more alert now. She had a prolonged INR on admission and progressive anemia which she was transfused. I wonder if she has borderline liver function, for whatever reason, and the GI bleed could cause the ammonia level to rise further. Her lab work is improving. Her white cell count is 9000 today and her hemoglobin is 12.9. Her platelet count is 215,000. Her serum sodium is now normal with a normal serum potassium. She is somewhat acidotic with a carbon dioxide of 17. Her serum creatinine also remains modestly elevated at 1.2. Her total bilirubin is finally a little elevated at 1.2. She has low proteins including a serum albumin of 1.5 and a globulin of 1.9. I am going to order another serum ammonia level in the morning. Today she is more oriented and alert she remains lethargic and her speech pattern is somewhat slow and slurred but mostly just low. Her lungs are clear with slightly coarse breath sounds. Heart sounds are normal. Exam - Constitutional Vitals: Period Temp Pulse Resp BP Sys/Altamirano Pulse Ox Last 24 Hr 97.3 F-98.1 F 87-98 18-20 105-117/60-77 96-97 Results - Labs CBC & BMP: 04/11/17 04:44 04/11/17 04:44
[2017-04-11] MEDS: SPIRONOLACTONE 25 MG TABLET PO SCH ×2 (14:59→21:32)
[2017-04-12] MEDS: SODIUM CHLORIDE 0.45% 1,000 ML IV SCH ×2 (05:17→17:46)
[2017-04-12 05:34] LABS: Basophils % 0.2 % (0.0-0.8); Eosinophils # 0.1 10*3/uL (0.0-0.87); Eosinophils % 0.6 % (0.00-10.9); Hematocrit 40.2 VOL% (35.7-47.0); Hemoglobin 13.6 GM/DL (12.0-16.0); Immature Granulocytes % 0.9 %; Immature Granulocytes Absolute 0.09 #; Lymphocytes # 1.5 10*3/uL (1.4-4.0); Lymphocytes % 15.7 % (21.3-54.2); Mean Corpuscular HGB Conc 33.8 GM/DL (32-36); Mean Corpuscular Hemoglobin 30 PG (27-34); Mean Corpuscular Volume 89.1 FL (87-102); Monocytes # 0.6 10*3/uL (0.11-0.8); Monocytes % 5.7 % (1.7-12.7); Neutrophils # 7.4 10*3/uL (1.4-7.4); Neutrophils % 76.9 % (38.7-73.9); Platelet Count 224 T/CUMM (130-400); Red Blood Count 4.51 MC/CUMM (3.8-5.5); White Blood Count 9.6 T/CUMM (4-12)
[2017-04-12 05:46] LABS: INR 1.6; PT Patient Result 17.3 SECS
[2017-04-12 06:11] LABS: Albumin 1.5 G/DL (3.4-5.0); Bilirubin,Total 0.6 MG/DL (0.2-1.0); Calcium 6.9 MG/DL (8.5-10.1); Osmolality,Calculated 282.5 MOS/KG (273-304); Potassium 4.1 MMOL/L (3.5-5.1); Total Protein 3.5 G/DL (6.4-8.3)
[2017-04-12 06:13] LABS: Band Neutrophils 8 % (0-10); Hypochromasia Slight; Lymphocytes 2 % (20-55); Microcytosis 1+; Platelet Estimate Adequate; Segmented Neutrophils 89 % (50-85); Total Cells Counted 100
[2017-04-12] MEDS: LINEZOLID INJ 600 MG in PREMIX 1 EACH IV SCH ×2 (06:20→17:46)
[2017-04-12] MEDS ORDERED: FLUCONAZOLE INJ 200 MG in PREMIX 1 EACH IV ONE (07:39)
[2017-04-12] MEDS ORDERED: ENOXAPARIN 60 MG/0.6 ML SYRINGE SUBCUT ONE (07:41)
--- NOTE | 2017-04-12 07:44 | Oncology Progress Note ---
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 Castaneda seems to be doing better. Her ammonia level is slightly increased at 79 today from 59 four days ago. She remains severely debilitated and we have a long way to go from a rehab standpoint. Her INR today is less than 2 so I will restart her back on Coumadin at 1 mg nightly. I will dose her with Lovenox today to continue treatment of her lower extremity DVTs. We will continue with lactulose. I will advance her diet to full liquid diet and consult dietitian for assistance with improving her diet. I suspect she has a very low protein intake. Her next few weeks will be very slow from a physical rehab standpoint since she has been set back a good bit over the last 5 days with her acute illness. I will continue his Zyvox. If she does well this week we could consider looking for rehab placement next week. She is still nowhere near ready for chemotherapy and beginning to doubt she will ever be. Exam - Constitutional Vitals: Period Temp Pulse Resp BP Sys/Altamirano Pulse Ox Last 24 Hr 96.2 F-97.2 F 82-92 18-20 91-129/58-70 90-100 General appearance: no acute distress, over weight - Head Head Exam: Present: normocephalic, atraumatic - Eye Eye Exam: Present: EOMI Pupils: Present: PERRL - ENT ENT exam: Present: normal exam, normal oropharynx - Neck Neck exam: Absent: lymphadenopathy, thyromegaly - Respiratory Respiratory exam: Present: CTAB. Absent: wheezes - Cardiovascular Cardiovascular exam: Present: RRR. Absent: JVD - GI/Abdominal GI/Abdominal exam: Present: soft. Absent: ascites, distended, mass - Neurological Exam Neurological exam: Present: alert - Psychiatric Psychiatric exam: Present: normal affect, normal mood - Skin Skin exam: Present: warm, dry Results - Labs CBC & BMP: 04/12/17 04:56 04/12/17 04:56 Lab Results: I have reviewed the past 24 hour labs
[2017-04-12] MEDS: PANTOPRAZOLE 40 MG VIAL IV SCH (08:44)
[2017-04-12] MEDS: LACTULOSE 20 GM/30 ML UDCUP PO SCH ×3 (08:44→20:59)
[2017-04-12] MEDS: SPIRONOLACTONE 25 MG TABLET PO SCH ×3 (08:45→20:59)
[2017-04-12] MEDS: DESITIN 4OZ/NYSTATIN 15 GRAM MIXTURE PASTE TOP SCH ×2 (08:45→21:05)
--- NOTE | 2017-04-12 15:52 | Neurology Progress Note ---
Neurology - PN : Subjective Interval history: Patient seems to be doing okay. Stable neurologically. Alert and awake. Following commands. Holding conversation Exam (Progress Note) - Constitutional Vitals: Period Temp Pulse Resp BP Sys/Altamirano Pulse Ox Last 24 Hr 96.7 F-98.2 F 88-97 18-20 91-129/54-69 93-100 Exam: GENERAL: Patient is in no acute distress. NECK: Neck is supple. There is no JVD. No carotid bruits present. No thyroid masses. CVS: First and second heart sounds are normal. There is no S3 present. Regular rate and rhythm. RESPIRATORY: Lungs are clear to auscultation without any rales or rhonchi. ABDOMEN: Soft and non-tender. Bowel sounds are present. There is no hepatosplenomegaly. EXT: There is 2+ palpable edema in the lower extremity. Skin: No rashes Central Nervous system: General: Alert and awake and oriented 2 Speech: Fluent Comprehension: Intact and normal Facial expressions: Normal Cranial Nerves: Pupils are sluggish but reactive. Extraocular movements are intact. No facial asymmetry is seen. Motor: Bulk and Tone is normal. Strength symmetrical Sensory: Cannot be assessed Reflexes: 1+ and symmetrical Cerebellar function: Slow [id number] Toes: Equivocal Gait: Cannot be assessed Results - Labs CBC & BMP: 04/12/17 04:56 04/12/17 04:56 Assessment and Plan (1) Encephalopathy Status: Acute Assessment and plan: Patient seems to be doing fairly well from neuro standpoint No further intervention Sign off. Please call as needed Current Visit: Yes
[2017-04-12] MEDS: WARFARIN 1 MG TABLET PO SCH (17:45)
[2017-04-13] MEDS: SODIUM CHLORIDE 0.45% 1,000 ML IV SCH ×3 (03:01→21:37)
[2017-04-13 05:29] LABS: INR 1.4; PT Patient Result 14.8 SECS
[2017-04-13] MEDS: LINEZOLID INJ 600 MG in PREMIX 1 EACH IV SCH (05:35)
--- NOTE | 2017-04-13 07:50 | Oncology Progress Note ---
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 Castaneda is feeling well this morning. She is tolerating her full liquid diet with no issues of abdominal distention or nausea and vomiting. She has not had a bowel movement in 2 days now. We will continue with lactulose to treat her hyperammonemia this will also likely help her have a bowel movement in the near future. Physical therapy is working with her and will continue to get her out of bed. Her INR is subtherapeutic now. I restarted Coumadin yesterday and have placed her on Lovenox for bridging purposes. I had a discussion with her this morning about our current goals. I told her that chemotherapy is not even really on the platter at this point and that she is getting on the hospital and into a rehab center is our most immediate goal. She is still at least a few weeks away from ever considering doing any type of chemotherapy. She is on spironolactone 3 times a day to help pull off some of her fluid. Her abdomen level is quite low so most this fluid is third spaced. Her prognosis is very poor but will continue with her current treatment plan. If she worsens, she is DNR. Exam - Constitutional Vitals: Period Temp Pulse Resp BP Sys/Altamirano Pulse Ox Last 24 Hr 96.2 F-98.2 F 87-97 18-20 92-114/52-70 92-99 General appearance: normal weight, no acute distress - Head Head Exam: Present: normocephalic, atraumatic - Eye Eye Exam: Present: EOMI Pupils: Present: PERRL - ENT ENT exam: Present: normal exam, normal oropharynx - Neck Neck exam: Absent: lymphadenopathy, thyromegaly - Respiratory Respiratory exam: Present: CTAB. Absent: wheezes - Cardiovascular Cardiovascular exam: Present: RRR. Absent: irregular rhythm, JVD - GI/Abdominal GI/Abdominal exam: Present: hypoactive bowel sounds, soft. Absent: ascites, distended, mass, tenderness - Neurological Exam Neurological exam: Present: alert - Psychiatric Psychiatric exam: Present: normal affect, normal mood - Skin Skin exam: Present: warm, dry Results - Labs CBC & BMP: 04/12/17 04:56 04/12/17 04:56 Lab Results: I have reviewed the past 24 hour labs
[2017-04-13] MEDS: PANTOPRAZOLE 40 MG VIAL IV SCH (09:24)
[2017-04-13] MEDS: ENOXAPARIN 60 MG/0.6 ML SYRINGE SUBCUT SCH ×2 (09:24→21:38)
[2017-04-13] MEDS: DESITIN 4OZ/NYSTATIN 15 GRAM MIXTURE PASTE TOP SCH ×2 (09:25→21:42)
[2017-04-13] MEDS: LACTULOSE 20 GM/30 ML UDCUP PO SCH ×3 (09:25→21:40)
[2017-04-13] MEDS: SPIRONOLACTONE 25 MG TABLET PO SCH ×3 (09:25→21:38)
[2017-04-13] MEDS: WARFARIN 1 MG TABLET PO SCH (17:47)
[2017-04-14] MEDS: ONDANSETRON 4 MG/2 ML VIAL IV PRN (01:24)
[2017-04-14 08:01] LABS: Basophils % 0.1 % (0.0-0.8); Eosinophils % 0.6 % (0.00-10.9); Hematocrit 37.3 VOL% (35.7-47.0); Hemoglobin 13.1 GM/DL (12.0-16.0); Immature Granulocytes % 0.4 %; Immature Granulocytes Absolute 0.03 #; Lymphocytes # 1.1 10*3/uL (1.4-4.0); Lymphocytes % 15.7 % (21.3-54.2); Mean Corpuscular HGB Conc 35.1 GM/DL (32-36); Mean Corpuscular Hemoglobin 31 PG (27-34); Mean Corpuscular Volume 87.4 FL (87-102); Mean Platelet Volume 10.1 FL (9.6-12.0); Monocytes # 0.3 10*3/uL (0.11-0.8); Monocytes % 3.8 % (1.7-12.7); Neutrophils # 5.7 10*3/uL (1.4-7.4); Neutrophils % 79.4 % (38.7-73.9); Platelet Count 188 T/CUMM (130-400); Red Blood Count 4.27 MC/CUMM (3.8-5.5); Red Cell Distribution Width 20.6 % (9.3-17.3); White Blood Count 7.1 T/CUMM (4-12)
--- NOTE | 2017-04-14 08:01 | Oncology Progress Note ---
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 Castaneda is more awake and alert today. They are having a very difficult time drawing labs from her. We will ask for a PICC to be placed today. Our main labs we are checking at this time are PT and INR and daily ammonia levels. Once these normalize we will not need daily labs. She is still working with physical therapy. I have once again tried to explain to them that my goal with her has changed from being able to get her to chemotherapy to just being able to get out of the hospital. I think they should strongly start considering hospice care only at this point but they would like to keep trying with therapy. Her prognosis is poor and her current physical condition is severely decreased. I will hold her Lovenox shot this morning since we are asking for a PICC to be placed today. Exam - Constitutional Vitals: Period Temp Pulse Resp BP Sys/Altamirano Pulse Ox Last 24 Hr 96.5 F-98 F 91-99 18-20 94-146/54-68 94-96 General appearance: normal weight, no acute distress - Head Head Exam: Present: normocephalic, atraumatic - Eye Eye Exam: Present: EOMI Pupils: Present: PERRL - ENT ENT exam: Present: normal exam, normal oropharynx - Neck Neck exam: Absent: lymphadenopathy, thyromegaly - Respiratory Respiratory exam: Present: CTAB. Absent: wheezes - Cardiovascular Cardiovascular exam: Present: RRR. Absent: irregular rhythm, JVD Results - Labs CBC & BMP: 04/12/17 04:56 04/12/17 04:56
[2017-04-14 08:12] LABS: INR 1.3
[2017-04-14 08:38] LABS: Albumin 1.4 G/DL (3.4-5.0); Bilirubin,Total 0.7 MG/DL (0.2-1.0); Osmolality,Calculated 269.4 MOS/KG (273-304); Total Protein 3.3 G/DL (6.4-8.3)
[2017-04-14 08:39] LABS: Band Neutrophils 1 % (0-10); Burr Cells Slight; Hypochromasia 1+; Lymphocytes 7 % (20-55); Microcytosis 1+; Platelet Estimate Normal; Segmented Neutrophils 88 % (50-85); Total Cells Counted 100
[2017-04-14] MEDS: SPIRONOLACTONE 25 MG TABLET PO SCH ×3 (10:13→21:16)
[2017-04-14] MEDS: LACTULOSE 20 GM/30 ML UDCUP PO SCH ×3 (10:14→21:16)
[2017-04-14] MEDS: PANTOPRAZOLE 40 MG VIAL IV SCH (10:19)
[2017-04-14] MEDS: DESITIN 4OZ/NYSTATIN 15 GRAM MIXTURE PASTE TOP SCH ×2 (10:20→21:31)
--- NOTE | 2017-04-14 14:47 | Post Interventional Procedure ---
Pre-op diagnosis: History of colon cancer. IV access needed for medications and blood drawin Post-op diagnosis: same Procedure: Left arm PICC line. Ultrasound guidance for vascular access Flouroscopy: 0.1 min Radiologist: Suzan Miranda Anesthesia: local Specimens: none sent Estimated blood loss: minimal (less than 3 ml) Complications: none Condition: stable Description/Findings: A formal timeout was performed. Sonographic evaluation of the left upper extremity demonstrates patent and compressible basilic vein. The upper arm was prepped and draped in sterile fashion. 3 cc 1% lidocaine was administered subcutaneously. Under sonographic guidance, a micropuncture needle was advanced into the vein by this radiologist. A captured sonographic image documents the position of the needle. Needle was exchanged over a wire for a peel-away sheath. A dual lumen power PICC, cut to 44 cm, was advanced over the wire until the tip was at the RA-SVC junction. The position of the catheter was confirmed with fluoroscopic guidance and an image stored in PACS. The wire and sheath were removed. Both ports of the PICC were aspirated and flushed with heparinized saline. The device was secured with a StatLock. Fluoroscopy: 0.1 minutes. Fluoroscopic images captured and archived: 1 Impression: PICC line ready for immediate use. Routine catheter care Assessment and Plan - Time spent with patient Time spent with patient: Less than 30 minutes
--- NOTE | 2017-04-14 14:52 | Interventional Radiology Rpt ---
History: History of colon cancer. IV access needed for medications and blood drawing Date: 04/14/2017 Study: Left arm PICC line. Ultrasound guidance for vascular access Comparison exam: Not applicable PICC LINE A formal timeout was performed. Sonographic evaluation of the left upper extremity demonstrates patent and compressible basilic vein. The upper arm was prepped and draped in sterile fashion. 3 cc 1% lidocaine was administered subcutaneously. Under sonographic guidance, a micropuncture needle was advanced into the vein by this radiologist. A captured sonographic image documents the position of the needle. Needle was exchanged over a wire for a peel-away sheath. A dual lumen power PICC, cut to 44 cm, was advanced over the wire until the tip was at the RA-SVC junction. The position of the catheter was confirmed with fluoroscopic guidance and an image stored in PACS. The wire and sheath were removed. Both ports of the PICC were aspirated and flushed with heparinized saline. The device was secured with a StatLock. Fluoroscopy: 0.1 minutes. Fluoroscopic images captured and archived: 1 Impression: PICC line ready for immediate use. Routine catheter care. PROCEDURE INTERPRETED AT [facility] DEPARTMENT OF RADIOLOGY Final Report Signed by: Dr. Suzan Miranda
[2017-04-14] MEDS: SODIUM CHLORIDE 0.45% 1,000 ML IV SCH (18:16)
[2017-04-14] MEDS: WARFARIN 1 MG TABLET PO SCH (18:17)
[2017-04-14] MEDS: ENOXAPARIN 60 MG/0.6 ML SYRINGE SUBCUT SCH (21:18)
[2017-04-15 07:06] LABS: INR 1.4
[2017-04-15] MEDS ORDERED: FUROSEMIDE 40 MG/4 ML VIAL IV ONE (07:51)
[2017-04-15] MEDS: SPIRONOLACTONE 25 MG TABLET PO SCH ×3 (09:32→20:39)
[2017-04-15] MEDS: ENOXAPARIN 60 MG/0.6 ML SYRINGE SUBCUT SCH ×2 (09:33→20:39)
[2017-04-15] MEDS: PANTOPRAZOLE 40 MG VIAL IV SCH (09:33)
[2017-04-15] MEDS: LACTULOSE 20 GM/30 ML UDCUP PO SCH ×3 (09:36→20:40)
[2017-04-15] MEDS: DESITIN 4OZ/NYSTATIN 15 GRAM MIXTURE PASTE TOP SCH ×2 (09:42→20:40)
[2017-04-15] MEDS: FUROSEMIDE 40 MG TABLET PO SCH (09:43)
--- NOTE | 2017-04-15 12:16 | Oncology Progress Note ---
Addendum entered and electronically signed by Jose Landry MD 04/15/17 07: 53: I will go ahead and give her a dose of IV Lasix today and place her on daily p.o. Lasix. She seems to be taking in adequate p.o. intake now. Original Note: Assessment and Plan (1) Confusion Status: Acute Current Visit: Yes (2) Debility Status: Acute Current Visit: Yes (3) Hypoalbuminemia due to protein-calorie malnutrition Status: Acute Current Visit: Yes (4) Lower extremity edema Status: Acute Current Visit: Yes (5) Nausea vomiting and diarrhea Status: Acute Current Visit: Yes (6) DVT (deep venous thrombosis) Status: Acute Current Visit: No (7) Pulmonary emboli Status: Acute Current Visit: No (8) Cancer of transverse colon Status: Suspected Current Visit: No (9) Hyperammonemia Status: Acute Current Visit: Yes (10) Encephalopathy Status: Acute Current Visit: Yes Oncology Subjective PN Interval history: Ms. Castaneda is a 72-year-old white female with advanced colon cancer with 3 separate primaries who has not undergone any type of treatment due to poor physical condition. She also has extensive lower extremity DVTs of both legs causing severe edema. She was admitted from rehab 2 weeks ago with failure to thrive and confusion. Her ammonia level was found to be significantly elevated with no obvious evidence of liver dysfunction. We are treating her with lactulose this is improved her mental status significantly. She still is unable to get out of bed without full assistance. Physical therapy is working with her but her advanced age and poor physical condition will make this a very slow process. My goals for now are to continue with physical therapy. She will likely need rehab placement once again at some point next week. We will continue with anticoagulation using Lovenox. I have her on Coumadin at 1 mg now since her INR was supratherapeutic upon admission when she was taking 2 mg. She is slowly advancing her diet and seems to have recovered from her small bowel obstruction. She is having bowel movements we have continued with lactulose 3 times daily. I have held using Lasix since she has been taking in very little p.o. intake and I was concerned we would cause dehydration. She is a DNR if she worsens but hopefully she will continue to improve over the next few days to the point where we can start considering discharge. I really do not think we will ever be treating her cancer given her current physical state. Exam - Constitutional Vitals: Period Temp Pulse Resp BP Sys/Altamirano Pulse Ox Last 24 Hr 97.6 F-98.0 F 97-99 17-20 86-109/50-68 93-97 General appearance: normal weight, no acute distress - Head Head Exam: Present: normocephalic, atraumatic - Eye Eye Exam: Present: EOMI Pupils: Present: PERRL - ENT ENT exam: Present: normal exam, normal oropharynx - Neck Neck exam: Absent: lymphadenopathy, thyromegaly - Respiratory Respiratory exam: Present: CTAB. Absent: wheezes - Cardiovascular Cardiovascular exam: Present: RRR. Absent: JVD - GI/Abdominal GI/Abdominal exam: Present: soft. Absent: ascites, distended, mass - Neurological Exam Neurological exam: Present: alert, oriented X3 Results - Labs CBC & BMP: 04/14/17 07:52 04/14/17 07:52 Lab Results: I have reviewed the past 24 hour labs
[2017-04-15] MEDS: ONDANSETRON 4 MG/2 ML VIAL IV PRN (14:47)
[2017-04-15] MEDS: WARFARIN 1 MG TABLET PO SCH (17:43)
[2017-04-15] MEDS: SODIUM CHLORIDE 0.45% 1,000 ML IV SCH (20:38)
[2017-04-16 05:24] LABS: Basophils % 0.3 % (0.0-0.8); Hematocrit 34.3 VOL% (35.7-47.0); Hemoglobin 11.6 GM/DL (12.0-16.0); Immature Granulocytes % 0.1 %; Immature Granulocytes Absolute 0.01 #; Lymphocytes # 0.9 10*3/uL (1.4-4.0); Lymphocytes % 11.3 % (21.3-54.2); Mean Corpuscular HGB Conc 33.8 GM/DL (32-36); Mean Corpuscular Hemoglobin 30 PG (27-34); Mean Corpuscular Volume 88.9 FL (87-102); Mean Platelet Volume 10.8 FL (9.6-12.0); Monocytes # 0.2 10*3/uL (0.11-0.8); Monocytes % 3.2 % (1.7-12.7); NRBC # 0.03 10*3/uL; Neutrophils # 6.4 10*3/uL (1.4-7.4); Neutrophils % 85.1 % (38.7-73.9); Platelet Count 141 T/CUMM (130-400); Red Blood Count 3.86 MC/CUMM (3.8-5.5); Red Cell Distribution Width 19.5 % (9.3-17.3); White Blood Count 7.5 T/CUMM (4-12)
[2017-04-16 05:29] LABS: INR 1.5; PT Patient Result 16.2 SECS
[2017-04-16 05:45] LABS: Albumin 1.2 G/DL (3.4-5.0); Bilirubin,Total 0.8 MG/DL (0.2-1.0); Calcium 6.7 MG/DL (8.5-10.1); Magnesium 1.7 MG/DL (1.8-2.4); Osmolality,Calculated 266.7 MOS/KG (273-304); Potassium 3.8 MMOL/L (3.5-5.1); Total Protein 2.9 G/DL (6.4-8.3)
[2017-04-16 06:04] LABS: Band Neutrophils 9 % (0-10); Burr Cells Slight; Hypochromasia Slight; Lymphocytes 10 % (20-55); Platelet Estimate Normal; Segmented Neutrophils 79 % (50-85); Total Cells Counted 100
[2017-04-16 06:05] LABS: Microcytosis 1+
[2017-04-16] MEDS: SODIUM CHLORIDE 0.45% 1,000 ML IV SCH ×2 (09:30→21:49)
[2017-04-16] MEDS: LACTULOSE 20 GM/30 ML UDCUP PO SCH ×3 (09:31→21:50)
[2017-04-16] MEDS: PANTOPRAZOLE 40 MG VIAL IV SCH (09:31)
[2017-04-16] MEDS: ENOXAPARIN 60 MG/0.6 ML SYRINGE SUBCUT SCH ×2 (09:31→21:48)
[2017-04-16] MEDS: FUROSEMIDE 40 MG TABLET PO SCH (09:31)
[2017-04-16] MEDS: DESITIN 4OZ/NYSTATIN 15 GRAM MIXTURE PASTE TOP SCH (09:32)
[2017-04-16] MEDS: SPIRONOLACTONE 25 MG TABLET PO SCH ×3 (09:34→21:45)
[2017-04-16] MEDS ORDERED: MORPHINE 2 MG/1 ML SYRINGE IV PRN (11:11)
--- NOTE | 2017-04-16 11:15 | Oncology Progress Note ---
Oncology Subjective PN Interval history: Very unfortunate patient with colon cancer and debility. She has severe hypoalbuminemia. She has encephalopathy that has improved since admission. She is reporting some generalized pain and discomfort and looks chronically ill and uncomfortable on my examination. The family states she has trouble with pills and I am going to add some intravenous morphine and Ativan low-dose as needed discomfort or agitation. Labs are reviewed. Remains on low-dose Coumadin as well as Lovenox for history of thrombosis with warfarin currently subtherapeutic. She is hypotensive. She has antibiotics for her UTI. Cultures also notable for Gladys and has received Diflucan. Overall I think her prognosis is very poor and it is quite possible she may never reach the point of being an acceptable chemotherapy candidate Exam - Constitutional Vitals: Period Temp Pulse Resp BP Sys/Altamirano Pulse Ox Last 24 Hr 96.9 F-99.3 F 100-112 16-18 81-107/47-72 94-98 Results - Labs CBC & BMP: 04/16/17 04:00 04/16/17 04:00
[2017-04-16] MEDS ORDERED: SODIUM CHLORIDE 0.9% 500 ML IV ONE (12:56)
[2017-04-16] MEDS ORDERED: ALBUMIN 25% 50 GM in PREMIX 1 EACH IV ONE (13:30)
[2017-04-16] MEDS: WARFARIN 1 MG TABLET PO SCH (18:23)
[2017-04-17] MEDS: DESITIN 4OZ/NYSTATIN 15 GRAM MIXTURE PASTE TOP SCH ×3 (00:13→23:05)
[2017-04-17] MEDS: SPIRONOLACTONE 25 MG TABLET PO SCH ×4 (08:55→21:32)
[2017-04-17] MEDS: LACTULOSE 20 GM/30 ML UDCUP PO SCH ×3 (08:55→21:39)
[2017-04-17] MEDS: FUROSEMIDE 40 MG TABLET PO SCH (08:56)
[2017-04-17] MEDS: ENOXAPARIN 60 MG/0.6 ML SYRINGE SUBCUT SCH ×2 (08:56→21:38)
[2017-04-17] MEDS: PANTOPRAZOLE 40 MG VIAL IV SCH (08:56)
[2017-04-17 11:11] LABS: INR 2.5
[2017-04-17 11:25] LABS: PT Patient Result 28.4 SECS
--- NOTE | 2017-04-17 14:26 | Oncology Progress Note ---
Oncology Subjective PN Interval history: Ms. Castaneda appears uncomfortable and chronically ill. She is having weeping from the bilateral elbow areas with left PICC line in place. We will attempt to elevate these better. I did order IV supportive medicines yesterday including morphine and Ativan though these were declined by family. Because of her difficulty with swallowing pills I am going to institute a transdermal fentanyl patch at 25 mcg today. It is my opinion that she is in significant discomfort from her anasarca and immobility. She appears to be breathing comfortable at this time. Her fluid status is very difficult to regulate and she is on both IV fluids and diuretics at this time. Blood pressure is improved today after 50 g albumin administration yesterday. I am looking for other family members to discuss her case with. in My opinion I do not see a reasonable chance of recovery from her current situation. Exam - Constitutional Vitals: Period Temp Pulse Resp BP Sys/Altamirano Pulse Ox Last 24 Hr 97.1 F-97.4 F 99-107 14-22 85-102/52-53 91 Results - Labs CBC & BMP: 04/16/17 04:00 04/16/17 04:00
[2017-04-17] MEDS: fentaNYL 25 MCG/HR PATCH TRANSDERM SCH (14:57)
[2017-04-17] MEDS: SODIUM CHLORIDE 0.45% 1,000 ML IV SCH ×2 (14:58→19:54)
[2017-04-18] MEDS: PANTOPRAZOLE 40 MG VIAL IV SCH (09:51)
[2017-04-18] MEDS: ENOXAPARIN 60 MG/0.6 ML SYRINGE SUBCUT SCH (09:51)
[2017-04-18] MEDS: LACTULOSE 20 GM/30 ML UDCUP PO SCH ×3 (09:52→20:00)
[2017-04-18] MEDS: SODIUM CHLORIDE 0.45% 1,000 ML IV SCH (09:52)
[2017-04-18] MEDS: SPIRONOLACTONE 25 MG TABLET PO SCH (09:52)
[2017-04-18] MEDS: FUROSEMIDE 40 MG TABLET PO SCH (09:52)
[2017-04-18] MEDS: DESITIN 4OZ/NYSTATIN 15 GRAM MIXTURE PASTE TOP SCH ×2 (09:53→20:04)
--- NOTE | 2017-04-18 11:18 | Oncology Progress Note ---
Oncology Subjective PN Interval history: Colon cancer and severe weakness and debility. The patient is comfortable this morning and answers questions appropriately. She is very weak and cannot lift her elbows off of the bed. Evidence of anasarca is noted. I have discussed her case today with 2 of her daughters and her sister. We will institute comfort measures. The nurses do report some possible lower GI bleeding and I have discontinued her Lovenox. I discussed her fluid status and her low albumin and her propensity to third space. I am going to stop both her fluids and Lasix and simply try to allow for some degree of equilibrium. They are not ready for her to go home at this time as they are fearful that time they would not be able to provide adequate care. Exam - Constitutional Vitals: Period Temp Pulse Resp BP Sys/[place]ano Pulse Ox Last 24 Hr 96.8 F-97.7 F 78-105 14-22 74-107/43-53 90-94 Results - Labs CBC & BMP: 04/16/17 04:00 04/16/17 04:00
[2017-04-19 05:04] LABS: Basophils % 0.2 % (0.0-0.8); Eosinophils % 0.7 % (0.00-10.9); Hematocrit 27.8 VOL% (35.7-47.0); Hemoglobin 9.3 GM/DL (12.0-16.0); Immature Granulocytes % 2.1 %; Immature Granulocytes Absolute 0.09 #; Lymphocytes # 0.6 10*3/uL (1.4-4.0); Lymphocytes % 13.1 % (21.3-54.2); Mean Corpuscular HGB Conc 33.5 GM/DL (32-36); Mean Corpuscular Hemoglobin 31 PG (27-34); Mean Corpuscular Volume 91.4 FL (87-102); Mean Platelet Volume 12.5 FL (9.6-12.0); Monocytes # 0.1 10*3/uL (0.11-0.8); Monocytes % 2.4 % (1.7-12.7); NRBC # 0.08 10*3/uL; Neutrophils # 3.4 10*3/uL (1.4-7.4); Neutrophils % 81.5 % (38.7-73.9); Platelet Count 50 T/CUMM (130-400); Red Blood Count 3.04 MC/CUMM (3.8-5.5); Red Cell Distribution Width 20.1 % (9.3-17.3); White Blood Count 4.2 T/CUMM (4-12)
[2017-04-19 05:32] LABS: Band Neutrophils 1 % (0-10); Lymphocytes 21 % (20-55); Metamyelocytes 1 %; Nucleated Red Blood Cells 1 (0-5); Segmented Neutrophils 77 % (50-85)
[2017-04-19 05:33] LABS: Total Cells Counted 100
[2017-04-19 05:34] LABS: Platelet Estimate Decreased
[2017-04-19 06:24] LABS: Albumin 1.5 G/DL (3.4-5.0); Bilirubin,Total 0.5 MG/DL (0.2-1.0); Osmolality,Calculated 267.8 MOS/KG (273-304); Potassium 3.9 MMOL/L (3.5-5.1); Total Protein 2.9 G/DL (6.4-8.3)
[2017-04-19 08:41] LABS: INR 3.7
[2017-04-19] MEDS: PANTOPRAZOLE 40 MG VIAL IV SCH (09:06)
[2017-04-19] MEDS: LACTULOSE 20 GM/30 ML UDCUP PO SCH ×3 (09:10→20:35)
[2017-04-19] MEDS: SPIRONOLACTONE 25 MG TABLET PO SCH (09:10)
[2017-04-19] MEDS: DESITIN 4OZ/NYSTATIN 15 GRAM MIXTURE PASTE TOP SCH ×2 (09:10→20:35)
[2017-04-19 09:43] LABS: PT Patient Result 42.6 SECS
[2017-04-19 09:47] LABS: Partial Thromboplastin Time 103.1 SECS (0-40)
--- NOTE | 2017-04-19 15:28 | Oncology Progress Note ---
Oncology Subjective PN Interval history: Patient is hypotensive and minimally responsive. Pupils are 3 mm bilateral. Blood pressure earlier today 50 systolic. She will arouse with loud voice and touch. Multiple family members are present. Continue comfort care Exam - Constitutional Vitals: Period Temp Pulse Resp BP Sys/[place] Pulse Ox Last 24 Hr 96.5 F-98.3 F 99-107 10-20 58-89/30-53 86-90 Results - Labs CBC & BMP: 04/19/17 04:00 04/19/17 04:00
[2017-04-19 16:55] VITALS: BP 77/45
[2017-04-19] MEDS: LORazepam 2 MG/1 ML VIAL IV PRN (22:38)
--- NOTE | 2017-04-20 07:40 | Oncology Progress Note ---
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 Castaneda has worsened over the last few days. She is now unresponsive and we are providing comfort measures only. I do not anticipate her surviving more than 24-48 hours. Her family are with her at bedside. We will continue with IV Ativan but I also offered morphine if they are willing. We are not doing vital signs. I also told in the did not have to continue turning her given her current condition. Exam - Constitutional Vitals: Period Temp Pulse Resp BP Sys/[place] Pulse Ox Last 24 Hr 96.5 F-97.0 F 104-107 9-22 58-177/30-45 90 General appearance: no acute distress - Head Head Exam: Present: normocephalic, atraumatic - ENT ENT exam: Present: normal exam, normal oropharynx - Neck Neck exam: Absent: lymphadenopathy, thyromegaly - Respiratory Respiratory exam: Present: CTAB. Absent: wheezes Results - Labs CBC & BMP: 04/19/17 04:00 04/19/17 04:00
[2017-04-20] MEDS: SPIRONOLACTONE 25 MG TABLET PO SCH (08:25)
[2017-04-20] MEDS: LACTULOSE 20 GM/30 ML UDCUP PO SCH ×3 (08:25→20:06)
[2017-04-20] MEDS: PANTOPRAZOLE 40 MG VIAL IV SCH (09:51)
[2017-04-20] MEDS: fentaNYL 25 MCG/HR PATCH TRANSDERM SCH (09:54)
[2017-04-20] MEDS: LORazepam 2 MG/1 ML VIAL IV PRN (10:34)
[2017-04-20] MEDS: DESITIN 4OZ/NYSTATIN 15 GRAM MIXTURE PASTE TOP SCH ×2 (10:35→22:29)
--- NOTE | 2017-04-21 07:17 | Oncology Progress Note ---
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 Castaneda is a 72-year-old white female with advanced colon cancer currently being managed with comfort measures only. She seems very near at this point and I honestly anticipated her to pass yesterday. She is only having very shallow breathing pattern now. Her family is with her at bedside. We have encouraged him to let us give her doses of morphine but they have refused thus far. I do not anticipate her to make it more than 24 hours. She seems to be comfortable. She shows no response to external stimuli. Exam - Constitutional Vitals: Period Temp Pulse Resp BP Sys/[place]ano Pulse Ox Last 24 Hr 16-24 General appearance: normal weight, no acute distress - Head Head Exam: Present: normocephalic, atraumatic - ENT ENT exam: Present: normal oropharynx - Neck Neck exam: Absent: lymphadenopathy, thyromegaly - Respiratory Respiratory exam: Present: CTAB. Absent: wheezes - Cardiovascular Cardiovascular exam: Present: RRR - GI/Abdominal GI/Abdominal exam: Present: soft. Absent: ascites, mass - Neurological Exam Neurological exam: Present: altered Results - Labs CBC & BMP: 04/19/17 04:00 04/19/17 04:00
[2017-04-21] MEDS: DESITIN 4OZ/NYSTATIN 15 GRAM MIXTURE PASTE TOP SCH (08:46)
[2017-04-21] MEDS: LACTULOSE 20 GM/30 ML UDCUP PO SCH (08:46)
[2017-04-21] MEDS: SPIRONOLACTONE 25 MG TABLET PO SCH (08:46)
[2017-04-21] MEDS: PANTOPRAZOLE 40 MG VIAL IV SCH (08:47)
== END 2017-04-21 11:26 | disposition expired | DRG 71 ==
LOC: EDUNIT# → EDBD → N.ED 23:35 → N.EDINP 04-05 04:57 → N.4E 04-05 05:37
PROVIDERS: ADMIT Specialist; ATTEND Specialist